=== PATIENT | female | born 1960 | race African-American/Black ===

== ENCOUNTER 2018-08-21 00:06 | Inpatient (IN) | payer BC ==
[~2018-08-21] VITALS: Ht 149.9 cm; Wt 72.0 kg
[~2018-08-21 00:06] MED LIST: ALBUTEROL; AMLO5TAB4; BENA20TA65; DEMEROL; PANCREAS MED; PEPCID; SOMA
[2018-08-21 02:37] VITALS: BP 133/76; PULSE 73; RESP 18
[2018-08-21 02:49] VITALS: Ht 149.9 cm; Wt 72.0 kg
--- NOTE | 2018-08-21 02:50 | HP ---
Date/Time of Note Date/Time of Note DATE: 08/21/18 TIME: 02:50 Assessment/Plan VTE Prophylaxis SCD applied (from Nsg): Yes Pharmacological prophylaxis: NA/contraindicated Pharm contraindication: low risk/ambulating Assessment/Plan Hospital Course This is a 58-year-old [facility] for: #1 recurrent pancreatitis: Patient has a history of chronic pink otitis. She was noted to have a lipase of 2100. We will keep patient n.p.o., IV fluid hydration with normal saline at 200 cc an hour. If patient's symptoms do not improve in the next 24 hours we will need to consider repeat CT scan with contrast of the abdomen pelvis. Patient was initially given morphine 2 mg upon arrival however patient states that this does not help her pain. At the current time we will adjust her morphine dose and put her on 4 mg every 3 hours. Zofran for nausea. Will check CBC CMP and lipase levels. #2 asthma: Stable at the current time, PRN albuterol as indicated #3 hypertension: Resume amlodipine and lisinopril #4 DVT GI prophylaxis: SCDs, no GI prophylaxis indicated Further treatment strategy will be implemented as per the clinical course. HPI/ROS Admit Date/Time Admit Date/Time Aug 21, 2018 at 02:10 Hx of Present Illness Chief complaint: Worsening abdominal This is a 58-year-old female who presented originally to [facility] complaining of abdominal pain. Patient has a history of asthma, chronic pink otitis and history of prior bowel obstruction. Patient was ultimately transferred to [facility] secondary insurance purposes. Patient originally presented to [facility] on [id number] where she was complaining of generalized sharp cramping severe intermittent abdominal pain. At that time she had a CT of the abdomen pelvis without contrast performed that did not show any acute on normalities. Patient symptoms had improved and she went home. She returned to [facility] on 08/20/2018 with symptoms of persistent nausea vomiting and abdominal pain. She had repeat studies performed there that showed a lipase of 2100. Upon arrival to [facility] patient did report abdominal pain as well as nausea. Pertinent laboratory findings when trended facility please see chart for full details: CT scan of the abdomen pelvis on 1226/as 19 showed: Fatty liver, small peripelvic cyst right kidney. Pelvic postoperative changes are present of the small bowel loops within the right pelvis. There are fecalized, minimally distended small bowel loops at the level of the previous surgery. More proximal and distal small bowel loops are normal in caliber. Atherosclerotic vascular disease CBC White blood cells 4.72 hemoglobin 10.7 hematocrit 32.6 platelets 190 Sodium 143 potassium 3.5 chloride 112 CO2 26 BUN 12 creatinine 0.60 lipase 2102 Alk phos 143 total bili 0.02 Allergies: Multiple please see EMR Medications: See MAR ROS Const: As per HPI Eyes : No pain discharge or redness or change in visual acuity ENT: No pain, sore throat, congestion, congestion, dysphagia or discharge Respiratory: No shortness of breath, cough, sputum, wheezing, or pleuritic pain Cardiovascular: No chest pain, palpitation, PND, or edema GI : As per HPI Genitourinary: No dysuria, hematuria, flank pain , discharge or CVA tenderness Musculoskeletal: No joint pain, back pain, neck pain, restricted range of motion in neck or joints Skin: No rash, bruising or hives Neuro: No headache, dizziness, syncope, seizure, focal weakness Endocrine: No polyuria, polydipsia, temperature intolerance Psych: No hallucination, depression, anxiety or suicidal ideation PMH/Family/Social Past Medical History Asthma, chronic pancreatitis, history of bowel obstruction, hypertension Coded Allergies: Codeine (Verified Allergy, Severe, RASH, 11/16/13) Hydrocodone (Verified Allergy, Severe, RASH, 11/16/13) Hydromorphone (Verified Allergy, Severe, RASH, 11/16/13) Oxycodone (Verified Allergy, Severe, RASH,BREATHING, 11/16/13) acetaminophen (Verified Allergy, Severe, RASH, 11/16/13) butorphanol (Verified Allergy, Severe, RASH, 11/16/13) ketorolac (Verified Allergy, Severe, RASH,BREATHINGPROBL, 11/16/13) nalbuphine (Verified Allergy, Severe, RASH, 11/16/13) pentazocine (Verified Allergy, Severe, CHRISTOPHER, 11/16/13) Past Surgical History Port-A-Cath placement secondary to poor venous access, questionable previous bowel surgery Family History Significant Family History: no pertinent family hx Social History Alcohol Use: none Smoking Status: Never smoker Drug Use: none Exam/Review of Systems Vital Signs Vitals Vital Signs Date Temp Pulse Resp B/P (MAP) Pulse Ox O2 O2 Flow FiO2 Time Delivery Rate 08/21/18 98.9 73 18 133/76 99 02:37 (95) Exam Exam General: Patient is currently lying in bed she appears to be in moderate distress from abdominal pain HEENT: Atraumatic, normocephalic. The pupils are equal, round and reactive. Extraocular motor are intact Neck: Supple with full range of motion. No rigidity or meningismus Chest: Port-A-Cath Lungs: Clear to auscultation bilaterally no crackles rales or wheezing Heart: Normal S1-S2, Regular rhythm and rate. Abdomen: Soft , tender to palpation over the epigastrium, nondistended, normal bowel sounds Extremities: Normal to inspection, no edema no cyanosis Neurologic: Normal mental status, speech normal, cranial nerves II through XII are intact, motor and sensory are intact, no focal weakness MONICA DARNELL Aug 21, 2018 02:50
[2018-08-21] MEDS ORDERED: METOCLOPRAMIDE 10 MG INJ IV PRN (03:00)
[2018-08-21] MEDS ORDERED: ONDANSETRON 4 MG INJ IV PRN (03:00)
[2018-08-21] MEDS ORDERED: NACL 0.9% 3 ML SYG IV SCH (03:00)
[2018-08-21] MEDS ORDERED: morphine 4 MG/ML VIAL IV PRN (03:00)
[2018-08-21] MEDS ORDERED: ACETAMINOPHEN 325 MG TAB PO PRN (03:00)
[2018-08-21] MEDS ORDERED: DOCUSATE SODIUM 100 MG CAP PO PRN (03:00)
[2018-08-21] MEDS ORDERED: BISACODYL (EC) 5 MG TAB PO PRN (03:00)
[2018-08-21] MEDS: SOD CHLORIDE 0.9% 1,000 ML IV SCH ×5 (03:28→23:03)
[2018-08-21] MEDS ORDERED: morphine 4 MG/ML VIAL IV ONE (05:03)
[2018-08-21] MEDS ORDERED: ALBUTEROL 0.083% (NEB) 2.5 MG/3 ML AMP HHN PRN (05:30)
--- NOTE | 2018-08-21 06:30 | NUR ---
Received from [facility] at 0220 hrs. Dx- Acute pancreatitis. A & O x 4. Skin is intact.on IVF NS at 200 cc/hr. Morphine 2 mg x2 given for pain.NPO except meds. Will continue to monitor.
[2018-08-21 07:36] VITALS: BP 123/68; PULSE 77; RESP 18
[2018-08-21] MEDS: BENAZEPRIL 20 MG TAB PO SCH (08:54)
[2018-08-21] MEDS: AMLODIPINE 5 MG TAB PO SCH (08:54)
[2018-08-21] MEDS: morphine 4 MG/ML VIAL IV PRN ×4 (08:59→20:40)
[2018-08-21] MEDS ORDERED: MAGNESIUM SULFATE 2 GM/50 ML 50 ML IVPB ONE (11:00)
[2018-08-21] MEDS ORDERED: DIATR MEGLU/DIATRIZOATE SODIUM 120 ML BTL ONE (11:11)
--- NOTE | 2018-08-21 11:12 | PN ---
Date/Time of Note Date/Time of Note DATE: 08/21/18 TIME: 11:06 Assessment/Plan VTE Prophylaxis Risk score (from Ns)>0 risk: 4 SCD applied (from Ns): Yes Pharmacological prophylaxis: NA/contraindicated Pharm contraindication: other Lines/Catheters IV Catheter Type (from [facility]): PORTACATH Assessment/Plan Hospital Course SUBJECTIVE: Continues to complain of abdominal pain specifically in the left upper quadrant and left lower quadrant with radiation to the back. OBJECTIVE: Physical Exam General: 58 year-old female lying in bed in no apparent distress. HEENT: Normocephalic, atraumatic. Eyes: Anicteric sclerae, conjunctivae clear. ENT: Nasal septum midline, oral mucosa moist. Neck obese. Respiratory: Bilaterally diminished breath sounds. No use of accessory muscles of respiration. No adventitious breath sounds. Cardiovascular: S1, S2 heard. regular rate and rhythm, Right chest wall Port-A-Cath. Abdomen: Soft and nondistended. diffuse tenderness. Midline surgical scar. Genitourinary: Deferred. Extremities: No cyanosis, no clubbing, no edema. Peripheral pulses palpable. Neurologic: Cranial nerves II through XII grossly intact. The patient is awake, alert, and oriented. Skin: Normal skin turgor. No skin rashes. Labs & Vitals per chart ASSESSMENT & PLAN 58-year-old male with comorbidities including asthma, hypertension, recurrent pancreatitis, chronic back pain, and bowel surgery in 2011 who went to the local emergency room complaining of abdominal pain with associated nausea, vomiting, and diarrhea. CT scan at the transferring ER was showing pelvic postoperative changes with small bowel loops within the right pelvis along with fecalized, minimally distended small bowel loops at the level of the previous surgery. The patient also had elevated lipase levels. The patient was transferred to [facility] for further evaluation because of insurance reasons. 1. Acute abdominal pain. -Etiology unclear. -Has minimally elevated pancreatic enzyme levels. -CT scan from the transferring facility suggesting pelvic postoperative changes with small bowel loops within the right pelvis along with fecalized, minimally distended small bowel loops at the level of the previous surgery. -Keep the patient NPO. -Small bowel follow through. -Stool studies to rule out any infectious etiology. 2. Pancreatitis. -Etiology unclear. -Continue NPO. -Trand pancreatic enzyme levels. -Gastroenterology consult. 3. Essential hypertension. -Continue antihypertensives 4. Asthma. -Continue inhaled bronchodilators as needed. -No evidence of any active bronchospasms. 5. Prediabetes -Hemoglobin A1c 5.9. -Monitor glycemic trends. 6. Fluids, electrolytes, and nutrition. -n.p.o. except for medications. -IV fluids. 7. DVT prophylaxis. -Bilateral SCDs. 8. Plan. -Continue n.p.o. -Continue pain control. -Obtain small bowel follow-through. -Obtain gastroenterology consult. The patient was seen in collaboration with Dr. Bone. Result Diagram: 08/21/18 0434 08/21/184 Results 24hrs Laboratory Tests Test 08/21/18 04:33 08/21/18 04:34 Lipase 917 H White Blood Count 4.5 L Red Blood Count 3.48 L Hemoglobin 10.4 L Hematocrit 32.2 L Mean Corpuscular Volume 92.5 Mean Corpuscular Hemoglobin 29.9 Mean Corpuscular Hemoglobin Concent 32.3 Red Cell Distribution Width 13.6 Platelet Count 205 Mean Platelet Volume 9.9 Immature Granulocytes % 0.400 Neutrophils % 51.8 Lymphocytes % 36.7 Monocytes % 8.2 Eosinophils % 2.7 Basophils % 0.2 Nucleated Red Blood Cells % 0.0 Immature Granulocytes # 0.020 Neutrophils # 2.3 Lymphocytes # 1.7 Monocytes # 0.4 Eosinophils # 0.1 Basophils # 0.0 Nucleated Red Blood Cells # 0.0 Prothrombin Time 13.2 Prothrombin Time Ratio 1.0 INR International Normalized Ratio 0.99 Activated Partial Thromboplast Time 28.3 Sodium Level 144 Potassium Level 3.5 Chloride Level 108 Carbon Dioxide Level 27 Anion Gap 9 Blood Urea Nitrogen 10 Creatinine 0.57 Est Glomerular Filtrat Rate mL/min > 60 Glucose Level 109 Hemoglobin A1c 5.9 Calcium Level 8.4 Magnesium Level 1.6 L Total Bilirubin 0.1 L Direct Bilirubin 0.00 Indirect Bilirubin 0.1 Aspartate Amino Transf (AST/SGOT) 21 Alanine Aminotransferase (ALT/SGPT) 23 Alkaline Phosphatase 110 Total Protein 6.0 L Albumin 3.3 Globulin 2.70 Albumin/Globulin Ratio 1.22 Triglycerides Level 118 Cholesterol Level 170 LDL Cholesterol, Calculated 118 HDL Cholesterol 28 L Cholesterol/HDL Ratio 6.0 Amylase Level 166 H Thyroid Stimulating Hormone (TSH) 4.400 Exam/Review of Systems Vital Signs Vitals Vital Signs Date Temp Pulse Resp B/P (MAP) Pulse Ox O2 O2 Flow FiO2 Time Delivery Rate 08/21/18 97.9 77 18 123/68 95 Room Air 07:36 (86) Intake and Output 08/20/18 08/20/18 08/21/18 1414:59 22:59 06:59 IntakeIntake Total 600 ml BalanceBalance 600 ml Medications Medications Current Medications Sodium Chloride 1,000 ml @ 200 mls/hr Q5H IV Last administered on 08/21/18at 08:54; Admin Dose 200 MLS/HR; Start 08/21/18 at 02:46 IV Flush (NS 3 ml) 3 ml PER PROTOCOL IV ; Start 08/21/18 at 03:00 Ondansetron HCl (Zofran Inj) 4 mg Q6H PRN IV NAUSEA AND/OR VOMITING; Start 08/21/18 at 03:00 Metoclopramide HCl (Reglan) 10 mg Q6H PRN IV NAUSEA AND/OR VOMITING; Start 08/21/18 at 03:00 Acetaminophen (Tylenol Tab) 650 mg Q6H PRN PO PAIN LEVEL 1-3 OR FEVER; Start 08/21/18 at 03:00 Docusate Sodium (Colace) 100 mg Q12H PRN PO CONSTIPATION; Start 08/21/18 at 03:00 Bisacodyl (Dulcolax) 5 mg DAILY PRN PO CONSTIPATION; Start 08/21/18 at 03:00 Morphine Sulfate (morphine) 4 mg Q3H PRN IV SEVERE PAIN LEVEL 7-10 Last administered on 08/21/18at 08:59; Admin Dose 4 MG; Start 08/21/18 at 07:00 Influenza Virus Vaccine Quadrival (Fluzone) 0.5 ml ONCE ONCE IM* ; Start 08/22/18 at 10:00; Stop 08/22/18 at 10:01 Amlodipine Besylate (Norvasc) 5 mg DAILY PO Last administered on 08/21/18at 08:54; Admin Dose 5 MG; Start 08/21/18 at 09:00 Albuterol (Proventil 0.083% (Neb)) 2.5 mg Q4H RESP THERAPY PRN HHN SHORTNESS OF BREATH; Start 08/21/18 at 05:30 Benazepril HCl (Lotensin) 20 mg DAILY PO Last administered on 08/21/18at 08:54; Admin Dose 20 MG; Start 08/21/18 at 09:00 Magnesium Sulfate 50 ml @ 25 mls/hr ONCE ONCE IVPB ; Start 08/21/18 at 11:00; Stop 08/21/18 at 12:59 NAYANA JANE NP Aug 21, 2018 11:12
--- NOTE | 2018-08-21 13:44 | QN ---
Documentation Comment Pt is off the floor, will consult in BRITTANY Adhikari Aug 21, 2018 13:44
[2018-08-21 14:09] VITALS: BP 134/76; PULSE 79; RESP 18
--- NOTE | 2018-08-21 18:43 | NUR ---
EOSS: PT STABLE THROUGHOUT SHIFT. SM BOWEL XRAY DONE WITH NEGATIVE RESULTS. STOOL AND URINE SENT PER ORDERS. PT IVF ONGOING, REPLACED MG PER ORDER. PT KEPT CLEAN AND DRY. NPO STATUS MAINTAINED. ALL DUE MEDS GIVEN, HOURLY ROUNDING COMPLETED. WILL ENDORSE CARE OF PT TO ONCOMING BLOG WRITER RN.
[2018-08-21 20:00] VITALS: BP 140/79; PULSE 72; RESP 18
[2018-08-21] MEDS: CARISOPRODOL 350 MG TAB PO PRN (21:53)
[2018-08-21] MEDS ORDERED: CARI350T29 PO (22:13)
[2018-08-22] MEDS: morphine 4 MG/ML VIAL IV PRN ×6 (00:01→21:00)
[2018-08-22 02:00] VITALS: BP 140/63; PULSE 74; RESP 18
[2018-08-22] MEDS: CARISOPRODOL 350 MG TAB PO PRN (04:18)
[2018-08-22] MEDS: SOD CHLORIDE 0.9% 1,000 ML IV SCH ×5 (04:19→23:46)
--- NOTE | 2018-08-22 06:06 | NUR ---
END OF SHIFT SUMMARY Received patient from AM shift on 08/21 at 1905. Patient is alert and oriented x4. Complains of abdominal pain. Pain is managed with Morphine IV PRN. Vital signs WNL. Obtained order for Soma [address] Wright per pt's request. Home meds reconciliation done. Patient is kept NPO except for meds. Stool and urine sample collected and sent by AM shift. Fall precautions initiated. Bed alarm is on, bed in lowest position, call light within reach. All needs attended. Will endorse to oncoming shift.
[2018-08-22 07:24] VITALS: BP 121/68; PULSE 69; RESP 18
[2018-08-22] MEDS: BENAZEPRIL 20 MG TAB PO SCH (08:57)
[2018-08-22] MEDS: AMLODIPINE 5 MG TAB PO SCH (08:57)
--- NOTE | 2018-08-22 10:17 | CONS ---
Date/Time of Note Date/Time of Note DATE: 08/22/18 TIME: 10:06 Assessment/Plan Assessment/Plan Hospital Course Assessment: Severe generalized abdominal pain Nausea/Vomiting Diarrhea- stool studies pending- no fevers Pancreatitis -elevated lipase- trending down Hx of prior bowel obstruction- with surgical intervention- 2010 Asthma HTN Hx of Diverticulitis Pt has port- due to poor venous access- and pt is frequently hospitalized Hx of hysterectomy Right breast pain -Recent right breast infection- about x1 month ago pt took Keflex and Bactrim Plan: Repeat CT with Iv/Po contrast Keep NPO Push IVF Monitor labs change Reglan to OTC Await stool studies Further rec based on clinical course Patient seen in collaboration with Dr. Rubalcava Result Diagram: 08/22/1828 08/22/18 0528 Results 24hrs Laboratory Tests Test 08/21/18 16:00 08/22/18 05:28 Urine Color YELLOW Urine Clarity CLEAR Urine pH 5.0 Urine Specific [place] 1.016 Urine Ketones NEGATIVE Urine Nitrite NEGATIVE Urine Bilirubin NEGATIVE Urine Urobilinogen NEGATIVE Urine Leukocyte Esterase NEGATIVE Urine Hemoglobin NEGATIVE Urine Glucose NEGATIVE Urine Total Protein NEGATIVE Urine Opiates Screen Positive Urine Barbiturates Negative Urine Amphetamines Screen Negative Urine Benzodiazepines Screen Negative Urine Cocaine Screen Negative Urine Cannabinoids Negative White Blood Count 6.4 # Red Blood Count 3.51 L Hemoglobin 10.5 L Hematocrit 31.7 L Mean Corpuscular Volume 90.3 Mean Corpuscular Hemoglobin 29.9 Mean Corpuscular Hemoglobin Concent 33.1 Red Cell Distribution Width 13.4 Platelet Count 252 # Mean Platelet Volume 9.5 Immature Granulocytes % 0.300 Neutrophils % 65.8 Lymphocytes % 26.1 Monocytes % 5.5 Eosinophils % 2.0 Basophils % 0.3 Nucleated Red Blood Cells % 0.0 Immature Granulocytes # 0.020 Neutrophils # 4.2 Lymphocytes # 1.7 Monocytes # 0.4 Eosinophils # 0.1 Basophils # 0.0 Nucleated Red Blood Cells # 0.0 Sodium Level 143 Potassium Level 3.4 L Chloride Level 106 Carbon Dioxide Level 26 Anion Gap 11 Blood Urea Nitrogen 4 L Creatinine 0.50 Est Glomerular Filtrat Rate mL/min > 60 Glucose Level 172 Calcium Level 8.0 L Phosphorus Level 2.5 Magnesium Level 1.9 Total Bilirubin 0.1 L Direct Bilirubin 0.00 Indirect Bilirubin 0.1 Aspartate Amino Transf (AST/SGOT) 21 Alanine Aminotransferase (ALT/SGPT) 26 Alkaline Phosphatase 125 H Total Protein 6.3 Albumin 3.5 Globulin 2.80 Albumin/Globulin Ratio 1.25 Amylase Level 107 Lipase 432 H CC: LISANDRA RUBALCAVA ; Consultation Date/Type/Reason Admit Date/Time Aug 21, 2018 at 02:10 Date of Consultation: Aug 22, 2018 Type of Consult GI Reason for Consultation Severe generalized abdominal pain Pancreatitis Hx of Present Illness Is a 58-year-old female with past medical history of asthma, hypertension, diverticulitis, pancreatitis, previous bowel obstruction with surgical intervention who initially presented to an outside hospital with complaints of profuse diarrhea, nausea/vomiting, and abdominal pain she had a CT abdomen/pelvis without contrast which showed fatty liver, small peripelvic cyst right kidney, postoperative changes of the small bowel loops within the right pelvis. There are of equal size, minimally distended small bowel loops at the level of the previous surgery. The more proximal and distal small bowel loops are normal in caliber. She was afebrile with a normal white count she was transferred to [facility] for insurance reasons. Here she underwent a small bowel follow-through which was negative stool studies have been ordered and currently pending was noted to be elevated 900s today is decreased to 400 at time evaluation patient continues to generalized abdominal pain notably worse to lower quadrants she continues to complain of diarrhea states vomiting has resolved but continues to have nausea. She denies recent tr volodymyr, exposure to illness with similar symptoms. She states she did use antibiotics about 1 month ago (Keflex, Bactrim) for right breast infection. She has denied melena, hematochezia, or hematemesis. Her last colonoscopy was 2016 she believes colonoscopy was negative but she is unsure of complete findings, last EGD was at the same time also negative per patient. Recommend repeating CAT scan with p.o. IV contrast for further evaluation await stool studies keep n.p.o. otherwise push IV fluid maintain close observation. Review of Systems: A 12 system, review was conducted and is negative except as noted in the HPI or here. Past Medical History Medications Current Medications Sodium Chloride 1,000 ml @ 200 mls/hr Q5H IV Last administered on 08/22/18at 09:24; Admin Dose 200 MLS/HR; Start 08/21/18 at 02:46 IV Flush (NS 3 ml) 3 ml PER PROTOCOL IV ; Start 08/21/18 at 03:00 Ondansetron HCl (Zofran Inj) 4 mg Q6H PRN IV NAUSEA AND/OR VOMITING; Start 08/21/18 at 03:00 Metoclopramide HCl (Reglan) 10 mg Q6H PRN IV NAUSEA AND/OR VOMITING; Start 08/21/18 at 03:00 Acetaminophen (Tylenol Tab) 650 mg Q6H PRN PO PAIN LEVEL 1-3 OR FEVER; Start 08/21/18 at 03:00 Docusate Sodium (Colace) 100 mg Q12H PRN PO CONSTIPATION; Start 08/21/18 at 03:00 Bisacodyl (Dulcolax) 5 mg DAILY PRN PO CONSTIPATION; Start 08/21/18 at 03:00 Morphine Sulfate (morphine) 4 mg Q3H PRN IV SEVERE PAIN LEVEL 7-10 Last administered on 08/22/18at 09:01; Admin Dose 4 MG; Start 08/21/18 at 07:00 Amlodipine Besylate (Norvasc) 5 mg DAILY PO Last administered on 08/22/18at 08:57; Admin Dose 5 MG; Start 08/21/18 at 09:00 Albuterol (Proventil 0.083% (Neb)) 2.5 mg Q4H RESP THERAPY PRN HHN SHORTNESS OF BREATH; Start 08/21/18 at 05:30 Benazepril HCl (Lotensin) 20 mg DAILY PO Last administered on 08/22/18at 08:57; Admin Dose 20 MG; Start 08/21/18 at 09:00 Carisoprodol (Soma) 350 mg DAILY PRN PO PAIN LEVEL 1-5 Last administered on 08/22/18at 04:18; Admin Dose 350 MG; Start 08/21/18 at 21:30 Allergies: Coded Allergies: Codeine (Verified Allergy, Severe, RASH, 11/16/13) Hydrocodone (Verified Allergy, Severe, RASH, 11/16/13) Hydromorphone (Verified Allergy, Severe, RASH, 11/16/13) Oxycodone (Verified Allergy, Severe, RASH,BREATHING, 11/16/13) acetaminophen (Verified Allergy, Severe, RASH, 11/16/13) butorphanol (Verified Allergy, Severe, RASH, 11/16/13) ketorolac (Verified Allergy, Severe, RASH,BREATHINGPROBL, 11/16/13) nalbuphine (Verified Allergy, Severe, RASH, 11/16/13) pentazocine (Verified Allergy, Severe, CHRISTOPHER, 11/16/13) Social History Alcohol Use: none Smoking Status: Never smoker Drug Use: none Exam/Review of Systems Vital Signs Vitals Vital Signs Date Temp Pulse Resp B/P (MAP) Pulse Ox O2 O2 Flow FiO2 Time Delivery Rate 08/22/18 98.6 69 18 121/68 93 Room Air 07:24 (85) Intake and Output 08/21/18 08/21/18 08/22/18 1515:00 23:00 07:00 IntakeIntake Total 400 ml 2000 ml 1200 ml BalanceBalance 400 ml 2000 ml 1200 ml Exam PHYSICAL EXAMINATION: GENERAL: Alert & oriented x 3, with abdominal pain SKIN: Port to right upper chest EYES: Pupils equal reactive to light, no discharge. EARS/NOSE AND THROAT: Ears normal, nose normal. NECK: Supple, no masses CHEST: Inspection within normal limits. CARDIOVASCULAR: Heart: Regular rate and rhythm RESPIRATORY: Lungs clear to auscultation GASTROINTESTINAL AND LIVER: Abdomen: Soft, generalized abdominal pain, non- distended, no hernias, no rebound tenderness, normoactive bowel sounds. Rectal: Deferred. GENITOURINARY: Female genitalia within normal limits. EXTREMITIES: No cyanosis, clubbing or edema. Medications Medications Current Medications Sodium Chloride 1,000 ml @ 200 mls/hr Q5H IV Last administered on 08/22/18at 09:24; Admin Dose 200 MLS/HR; Start 08/21/18 at 02:46 IV Flush (NS 3 ml) 3 ml PER PROTOCOL IV ; Start 08/21/18 at 03:00 Ondansetron HCl (Zofran Inj) 4 mg Q6H PRN IV NAUSEA AND/OR VOMITING; Start 08/21/18 at 03:00 Metoclopramide HCl (Reglan) 10 mg Q6H PRN IV NAUSEA AND/OR VOMITING; Start 08/21/18 at 03:00 Acetaminophen (Tylenol Tab) 650 mg Q6H PRN PO PAIN LEVEL 1-3 OR FEVER; Start 08/21/18 at 03:00 Docusate Sodium (Colace) 100 mg Q12H PRN PO CONSTIPATION; Start 08/21/18 at 03:00 Bisacodyl (Dulcolax) 5 mg DAILY PRN PO CONSTIPATION; Start 08/21/18 at 03:00 Morphine Sulfate (morphine) 4 mg Q3H PRN IV SEVERE PAIN LEVEL 7-10 Last administered on 08/22/18 09:01; Admin Dose 4 MG; Start 08/21/18 at 07:00 Amlodipine Besylate (Norvasc) 5 mg DAILY PO Last administered on 08/22/18at 08:57; Admin Dose 5 MG; Start 08/21/18 at 09:00 Albuterol (Proventil 0.083% (Neb)) 2.5 mg Q4H RESP THERAPY PRN HHN SHORTNESS OF BREATH; Start 08/21/18 at 05:30 Benazepril HCl (Lotensin) 20 mg DAILY PO Last administered on 08/22/18at 08:57; Admin Dose 20 MG; Start 08/21/18 at 09:00 Carisoprodol (Soma) 350 mg DAILY PRN PO PAIN LEVEL 1-5 Last administered on 08/22/18at 04:18; Admin Dose 350 MG; Start 08/21/18 at 21:30 BRITTANY MADRIGAL Aug 22, 2018 10:17
[2018-08-22] MEDS ORDERED: BARIUM SULF 2% 450 ML BTL (BERRY SMOOTHIE) PO ONE (12:00)
[2018-08-22] MEDS: VANCOMYCIN HCL 250 MG/5ML POSYG PO SCH ×2 (13:42→17:40)
[2018-08-22 14:06] VITALS: BP 138/73; PULSE 67; RESP 18
[2018-08-22] MEDS: METOCLOPRAMIDE 10 MG INJ IV SCH ×2 (14:45→21:00)
[2018-08-22] MEDS ORDERED: SOD CHLORIDE 0.9% 100 ML ONE (15:13)
[2018-08-22] MEDS ORDERED: IOHEXOL 300MG/ML 150 ML BTL ONE (15:13)
--- NOTE | 2018-08-22 15:14 | PN ---
Date/Time of Note Date/Time of Note DATE: 08/22/18 TIME: 15:11 Assessment/Plan VTE Prophylaxis Risk score (from Ns)>0 risk: 5 SCD applied (from Ns): Yes Pharmacological prophylaxis: NA/contraindicated Pharm contraindication: anticoag not tolerated Lines/Catheters IV [facility] Port A cath Assessment/Plan Hospital Course SUBJECTIVE: Continues to complain of abdominal pain. Complains of left breast soreness. She reported that she had a right breast infection recently. OBJECTIVE: Physical Exam General: 58 year-old female lying in bed in no apparent distress. HEENT: Normocephalic, atraumatic. Eyes: Anicteric sclerae, conjunctivae clear. ENT: Nasal septum midline, oral mucosa moist. Neck obese. Respiratory: Bilaterally diminished breath sounds. No use of accessory muscles of respiration. No adventitious breath sounds. Cardiovascular: S1, S2 heard. regular rate and rhythm, Right chest wall Port-A-Cath. Abdomen: Soft and nondistended. diffuse tenderness. Midline surgical scar. Genitourinary: Deferred. Extremities: No cyanosis, no clubbing, no edema. Peripheral pulses palpable. Neurologic: Cranial nerves II through XII grossly intact. The patient is awake, alert, and oriented. Skin: Normal skin turgor. No skin rashes. Breast exam (with a female learning disabilities teacher): Right breast has no erythema. Tenderness in the areola. Labs & Vitals per chart ASSESSMENT & PLAN 58-year-old male with comorbidities including asthma, hypertension, recurrent pancreatitis, chronic back pain, and bowel surgery in 2011 who went to the local emergency room complaining of abdominal pain with associated nausea, vomiting, and diarrhea. CT scan at the transferring ER was showing pelvic postoperative changes with small bowel loops within the right pelvis along with fecalized, minimally distended small bowel loops at the level of the previous surgery. The patient also had elevated lipase levels. The patient was transferred to [facility] for further evaluation because of insurance reasons. 1. Acute abdominal pain. -Etiology unclear. -Stool for C. difficile positive, the most likely reason for her underlying a bdominal pain. -Started on oral vancomycin. -Spore precautions. -Being followed by gastroenterology. 2. Pancreatitis. -Etiology unclear. -Trand pancreatic enzyme levels. -Gastroenterology consult. -Start the patient on a clear liquid diet. 3. Essential hypertension. -Continue antihypertensives 4. Asthma. -Continue inhaled bronchodilators as needed. -No evidence of any active bronchospasms. 5. Prediabetes -Hemoglobin A1c 5.9. -Monitor glycemic trends. 6. Fluids, electrolytes, and nutrition. -Clear liquid diet. -IV fluids. 7. DVT prophylaxis. -Bilateral SCDs. 8. Plan. -Clear liquid diet. -Continue pain control. -Bilateral breast ultrasound since the patient was complaining of sore in the breast. The patient was seen in collaboration with Dr. Bone. Result Diagram: [id number]/22/[id number]/18527 Results 24hrs Laboratory Tests Test 08/21/18 16:00 08/22/18 05:28 Urine Color YELLOW Urine Clarity CLEAR Urine pH 5.0 Urine Specific Novelty 1.016 Urine Ketones NEGATIVE Urine Nitrite NEGATIVE Urine Bilirubin NEGATIVE Urine Urobilinogen NEGATIVE Urine Leukocyte Esterase NEGATIVE Urine Hemoglobin NEGATIVE Urine Glucose NEGATIVE Urine Total Protein NEGATIVE Urine Opiates Screen Positive Urine Barbiturates Negative Urine Amphetamines Screen Negative Urine Benzodiazepines Screen Negative Urine Cocaine Screen Negative Urine Cannabinoids Negative White Blood Count 6.4 # Red Blood Count 3.51 L Hemoglobin 10.5 L Hematocrit 31.7 L Mean Corpuscular Volume 90.3 Mean Corpuscular Hemoglobin 29.9 Mean Corpuscular Hemoglobin Concent 33.1 Red Cell Distribution Width 13.4 Platelet Count 252 # Mean Platelet Volume 9.5 Immature Granulocytes % 0.300 Neutrophils % 65.8 Lymphocytes % 26.1 Monocytes % 5.5 Eosinophils % 2.0 Basophils % 0.3 Nucleated Red Blood Cells % 0.0 Immature Granulocytes # 0.020 Neutrophils # 4.2 Lymphocytes # 1.7 Monocytes # 0.4 Eosinophils # 0.1 Basophils # 0.0 Nucleated Red Blood Cells # 0.0 Sodium Level 143 Potassium Level 3.4 L Chloride Level 106 Carbon Dioxide Level 26 Anion Gap 11 Blood Urea Nitrogen 4 L Creatinine 0.50 Est Glomerular Filtrat Rate mL/min > 60 Glucose Level 172 Calcium Level 8.0 L Phosphorus Level 2.5 Magnesium Level 1.9 Total Bilirubin 0.1 L Direct Bilirubin 0.00 Indirect Bilirubin 0.1 Aspartate Amino Transf (AST/SGOT) 21 Alanine Aminotransferase (ALT/SGPT) 26 Alkaline Phosphatase 125 H Total Protein 6.3 Albumin 3.5 Globulin 2.80 Albumin/Globulin Ratio 1.25 Amylase Level 107 Lipase 432 H Exam/Review of Systems Vital Signs Vitals Vital Signs Date Temp Pulse Resp B/P (MAP) Pulse Ox O2 O2 Flow FiO2 Time Delivery Rate 08/22/18 98.3 67 18 138/73 93 Room Air 14:06 (94) Intake and Output 08/21/18 08/21/18 08/22/18 1414:59 22:59 06:59 IntakeIntake Total 400 ml 2000 ml 1200 ml BalanceBalance 400 ml 2000 ml 1200 ml Medications Medications Current Medications Sodium Chloride 1,000 ml @ 200 mls/hr Q5H IV Last administered on 08/22/18at 14:42; Admin Dose 200 MLS/HR; Start 08/21/18 at 02:46 IV Flush (NS 3 ml) 3 ml PER PROTOCOL IV ; Start 08/21/18 at 03:00 Ondansetron HCl (Zofran Inj) 4 mg Q6H PRN IV NAUSEA AND/OR VOMITING; Start 08/21/18 at 03:00 Acetaminophen (Tylenol Tab) 650 mg Q6H PRN PO PAIN LEVEL 1-3 OR FEVER; Start 08/21/18 at 03:00 Docusate Sodium (Colace) 100 mg Q12H PRN PO CONSTIPATION; Start 08/21/18 at 03:00 Bisacodyl (Dulcolax) 5 mg DAILY PRN PO CONSTIPATION; Start 08/21/18 at 03:00 Morphine Sulfate (morphine) 4 mg Q3H PRN IV SEVERE PAIN LEVEL 7-10 Last administered on 08/22/18at 12:00; Admin Dose 4 MG; Start 08/21/18 at 07:00 Amlodipine Besylate (Norvasc) 5 mg DAILY PO Last administered on 08/22/18at 08:57; Admin Dose 5 MG; Start 08/21/18 at 09:00 Albuterol (Proventil 0.083% (Neb)) 2.5 mg Q4H RESP THERAPY PRN HHN SHORTNESS OF BREATH; Start 08/21/18 at 05:30 Benazepril HCl (Lotensin) 20 mg DAILY PO Last administered on 08/22/18at 08:57; Admin Dose 20 MG; Start 08/21/18 at 09:00 Carisoprodol (Soma) 350 mg DAILY PRN PO PAIN LEVEL 1-5 Last administered on 08/22/18at 04:18; Admin Dose 350 MG; Start 08/21/18 at 21:30 Metoclopramide HCl (Reglan) 10 mg Q6H IV Last administered on 08/22/18at 14:45; Admin Dose 10 MG; Start 08/22/18 at 15:00 Vancomycin HCl (Vancomycin Oral Syringe) 250 mg Q6 PO Last administered on 08/22/18at 13:42; Admin Dose 250 MG; Start 08/22/18 at 13:30 Potassium Chloride (Klor-Con 10) 30 meq ONCE ONCE PO ; Start 08/22/18 at 15:30; Stop 08/22/18 at 15:31; Status UNV NAYANA JANE NP Aug 22, 2018 15:14
[2018-08-22] MEDS ORDERED: POTASSIUM CHLORIDE (SR) 10 MEQ TAB PO ONE (16:30)
--- NOTE | 2018-08-22 18:33 | NUR ---
No acute distress during the day. Patient been c/o back and abdominal pain. , medicated as ordered with relieve of pain to level of tolerance. Patient is still running diarrhea , stool positive for C Diff.MD aware.Breasts US done, CT scan of Abdomen done, results pending.VS within acceptable range.Patient remained safe , call light within reach, bed alarm is on at all times.Will continue to monitor.
[2018-08-22 20:00] VITALS: BP 120/67; PULSE 64; RESP 18
[2018-08-23] MEDS: VANCOMYCIN HCL 250 MG/5ML POSYG PO SCH ×5 (00:30→23:57)
[2018-08-23] MEDS: morphine 4 MG/ML VIAL IV PRN ×7 (00:31→23:05)
[2018-08-23 02:00] VITALS: BP 136/83; PULSE 60; RESP 18
[2018-08-23] MEDS: SOD CHLORIDE 0.9% 1,000 ML IV SCH ×4 (02:32→09:46)
[2018-08-23] MEDS: METOCLOPRAMIDE 10 MG INJ IV SCH ×2 (03:00→08:33)
--- NOTE | 2018-08-23 06:57 | NUR ---
EOSS Pt has diarrhea, uses bedside commode. Due meds given, pt medicated for pain x 3. VSS. Pt refuses bed alarm. Call light within reach and instructed to use call light.
[2018-08-23] MEDS: AMLODIPINE 5 MG TAB PO SCH (08:32)
[2018-08-23] MEDS: BENAZEPRIL 20 MG TAB PO SCH (08:32)
--- NOTE | 2018-08-23 08:57 | PN ---
Date/Time of Note Date/Time of Note DATE: 08/23/18 TIME: 08:52 Assessment/Plan VTE Prophylaxis Risk score (from Nsg)>0 risk: 5 SCD applied (from Nsg): No SCD contraindicated: low risk/ambulating, other Pharmacological prophylaxis: NA/contraindicated Pharm contraindication: low risk/ambulating Lines/Catheters IV Catheter Type (from Nrs): port a cath Assessment/Plan Hospital Course Assessment: CDIFF colitis Severe generalized abdominal pain- improved Nausea/Vomiting- resolved Diarrhea- improved Pancreatitis -elevated lipase- trending down -ct no evidence of pancreatitis Hx of prior bowel obstruction- with surgical intervention- 2010 Asthma HTN Hx of Diverticulitis Pt has port- due to poor venous access- and pt is frequently hospitalized Hx of hysterectomy Right breast pain -Recent right breast infection- about x1 month ago pt took Keflex and Bactrim Plan: Low residue diet Continue ABX- until total course is finished Will change Reglan to PRN Patient seen in collaboration with Dr. Baig Subjective: Course reviewed with nursing staff Patient interviewed and examined All labs, imaging and other results reviewed The patient feels much better today. Discussed results of Ct abd/pelvis pt c/o feeling of stricture near anal canal, she states a previous hx of hemorrhoidectomy Last colonoscopy 5 years ago, unsure of results. Discussed plan to f/u as an out patient for further evaluation, currently we need to treat cdiff infection. Pt verbalized understanding and is agreeable. She is tolerating cl liq diet well asking to advance diet. No c/o n/v, much less abd pain, diarrhea has already improved. PHYSICAL EXAMINATION: GENERAL: Alert & oriented x 3, with abdominal pain SKIN: Port to right upper chest EYES: Pupils equal reactive to light, no discharge. EARS/NOSE AND THROAT: Ears normal, nose normal. NECK: Supple, no masses CHEST: Inspection within normal limits. CARDIOVASCULAR: Heart: Regular rate and rhythm RESPIRATORY: Lungs clear to auscultation GASTROINTESTINAL AND LIVER: Abdomen: Soft, generalized abdominal pain, non-distended, no hernias, no rebound tenderness, normoactive bowel sounds. Rectal: Deferred. GENITOURINARY: Female genitalia within normal limits. EXTREMITIES: No cyanosis, clubbing or edema Result Diagram: 08/23/18 0552 08/23/18 0552 Results 24hrs Laboratory Tests Test 08/23/18 05:52 White Blood Count 6.4 Red Blood Count 3.63 L Hemoglobin 10.8 L Hematocrit 32.1 L Mean Corpuscular Volume 88.4 Mean Corpuscular Hemoglobin 29.8 Mean Corpuscular Hemoglobin Concent 33.6 Red Cell Distribution Width 13.0 Platelet Count 266 Mean Platelet Volume 9.8 Immature Granulocytes % 0.300 Neutrophils % 52.9 Lymphocytes % 35.7 Monocytes % 7.8 Eosinophils % 2.8 Basophils % 0.5 Nucleated Red Blood Cells % 0.0 Immature Granulocytes # 0.020 Neutrophils # 3.4 Lymphocytes # 2.3 Monocytes # 0.5 Eosinophils # 0.2 Basophils # 0.0 Nucleated Red Blood Cells # 0.0 Sodium Level 145 H Potassium Level 3.5 Chloride Level 106 Carbon Dioxide Level 29 Anion Gap 10 Blood Urea Nitrogen 3 L Creatinine 0.53 Est Glomerular Filtrat Rate mL/min > 60 Glucose Level 115 # Calcium Level 8.7 Phosphorus Level 2.9 Magnesium Level 1.7 Total Bilirubin 0.3 Direct Bilirubin 0.00 Indirect Bilirubin 0.3 Aspartate Amino Transf (AST/SGOT) 27 Alanine Aminotransferase (ALT/SGPT) 24 Alkaline Phosphatase 132 H Total Protein 6.5 Albumin 3.7 Globulin 2.80 Albumin/Globulin Ratio 1.32 Amylase Level 60 Lipase 221 Exam/Review of Systems Vital Signs Vitals Vital Signs Date Temp Pulse Resp B/P (MAP) Pulse Ox O2 O2 Flow FiO2 Time Delivery Rate 08/23/18 98.1 60 18 136/83 94 Room Air 02:00 (100) Intake and Output 08/22/18 08/22/18 08/23/18 1515:00 23:00 07:00 IntakeIntake Total 1800 ml 1340 ml 1840 ml BalanceBalance 1800 ml 1340 ml 1840 ml Medications Medications Current Medications Sodium Chloride 1,000 ml @ 200 mls/hr Q5H IV Last administered on 08/23/18at 07:57; Admin Dose 200 MLS/HR; Start 08/21/18 at 02:46 IV Flush (NS 3 ml) 3 ml PER PROTOCOL IV ; Start 08/21/18 at 03:00 Ondansetron HCl (Zofran Inj) 4 mg Q6H PRN IV NAUSEA AND/OR VOMITING; Start 08/21/18 at 03:00 Acetaminophen (Tylenol Tab) 650 mg Q6H PRN PO PAIN LEVEL 1-3 OR FEVER; Start 08/21/18 at 03:00 Docusate Sodium (Colace) 100 mg Q12H PRN PO CONSTIPATION; Start 08/21/18 at 03:00 Bisacodyl (Dulcolax) 5 mg DAILY PRN PO CONSTIPATION; Start 08/21/18 at 03:00 Morphine Sulfate (morphine) 4 mg Q3H PRN IV SEVERE PAIN LEVEL 7-10 Last administered on 08/23/18 08:38; Admin Dose 4 MG; Start 08/21/18 at 07:00 Amlodipine Besylate (Norvasc) 5 mg DAILY PO Last administered on 08/23/18 08:32; Admin Dose 5 MG; Start 08/21/18 at 09:00 Albuterol (Proventil 0.083% (Neb)) 2.5 mg Q4H RESP THERAPY PRN HHN SHORTNESS OF BREATH; Start 08/21/18 at 05:30 Benazepril HCl (Lotensin) 20 mg DAILY PO Last administered on 08/23/18 08:32; Admin Dose 20 MG; Start 08/21/18 at 09:00 Carisoprodol (Soma) 350 mg DAILY PRN PO PAIN LEVEL 1-5 Last administered on 08/22/18 04:18; Admin Dose 350 MG; Start 08/21/18 at 21:30 Metoclopramide HCl (Reglan) 10 mg Q6H IV Last administered on 08/22/18 14:45; Admin Dose 10 MG; Start 08/22/18 at 15:00 Vancomycin HCl (Vancomycin Oral Syringe) 250 mg Q6 PO Last administered on 08/23/18 06:38; Admin Dose 250 MG; Start 08/22/18 at 13:30 BRITTANY MADRIGAL Aug 23, 2018 08:57
[2018-08-23] MEDS ORDERED: METOCLOPRAMIDE 10 MG INJ IV PRN (09:00)
--- NOTE | 2018-08-23 11:38 | DS ---
Date/Time of Note Date/Time of Note DATE: 08/23/18 TIME: 11:34 Discharge Summary Admission/Discharge Info Admit Date/Time Aug 21, 2018 at 02:10 Discharge Date/Time Patient Condition: Good Consults Dr Siddiqui Procedures SBS IMPRESSION: 1. Negative small-bowel follow-through. 2. Contrast identified within the colon by 120 minutes. .Nika Anthony MD, MD Date Time CT A/P IMPRESSION: No evidence of urolithiasis, obstructive uropathy or diverticulitis. Nonvisualization appendix. No evidence of acute or chronic pancreatitis. Minimal bibasilar atelectasis with tiny effusions. Fatty liver. Hysterectomy.. .Ramses Rosales MD, MD Date Time BREAST ULTRASOUND PROCEDURE: Right breast ultrasound. CLINICAL INDICATION: Right breast pain TECHNIQUE: Right whole breast, 4 quadrant and retroareolar, and axillary sonography was performed. COMPARISON: Mammogram dated 01/18/2014 FINDINGS: No solid or suspicious masses. No areas of architectural distortion. No malignant adenopathy. No dominant cysts are present. IMPRESSION: No sonographic findings of malignancy. No sonographic correlate for the right breast pain. For complete evaluation, recommend correlation with mammogram as the most recent available mammogram is dated 2013. BI-RADS 0: INCOMPLETE, NEED ADDITIONAL IMAGING EVALUATION Physician Abdi Hx of Present Illness 58-year-old female admitted with recurrent abdominal pain. Hospital Course 58-year-old female admitted with recurrent abdominal pain. Seen by GI. Small bowel series, CAT scan not concerning for any acute process. Examination of stool returned positive for C. difficile. Patient's symptoms have improved. Her bowel movements have diminished. Patient is tolerating diet, stable and fit for discharge on Flagyl. We will asked that she follow-up with GI. C. difficile colitis, stable finish antibiotics Chronic asthma stable follow-up with pulmonary as indicated. Keep port in place Chronic hypertension Hysterectomy status Diverticulosis History of small bowel resection Metabolic syndromemurmur Recent breast cellulitis/antibiotics Home Meds Reported Medications Carisoprodol* (Carisoprodol*) 350 Mg Tablet, 350 MG PO DAILY PRN for MUSCLE SP ASMS, TAB 08/21/18 Benazepril Hcl* (Lotensin*) 20 Mg Tablet 08/12/09 Amlodipine Besylate* (Norvasc*) 5 Mg Tablet 08/12/09 [Pancreas Med] No Conflict Check 08/09/09 [Demerol] No Conflict Check 08/09/09 [Soma] No Conflict Check 08/09/09 [Pepcid] No Conflict Check 08/09/09 [Albuterol] No Conflict Check 08/09/09 Primary Care Provider Not On Staff Doctor Time spent on discharge: > 30 minutes Pending Labs Laboratory Tests Test 08/23/18 05:52 White Blood Count 6.4 10^3/ul (4.8-10.8) Red Blood Count 3.63 10^6/ul (4.20-5.40) Hemoglobin 10.8 g/dl (12.0-16.0) Hematocrit 32.1 % (37.0-47.0) Mean Corpuscular Volume 88.4 fl (82.0-101.0) Mean Corpuscular Hemoglobin 29.8 pg (29.0-33.0) Mean Corpuscular Hemoglobin Concent 33.6 g/dl (32.0-37.0) Red Cell Distribution Width 13.0 % (11.5-14.5) Platelet Count 266 10^3/UL (140-415) Mean Platelet Volume 9.8 fl (7.4-10.4) Immature Granulocytes % 0.300 % (0.001-0.429) Neutrophils % 52.9 % (39.0-77.0) Lymphocytes % 35.7 % (15.0-51.0) Monocytes % 7.8 % (0.0-11.0) Eosinophils % 2.8 % (0.0-7.0) Basophils % 0.5 % (0.0-2.0) Nucleated Red Blood Cells % 0.0 /100WBC (0.0-0.0) Immature Granulocytes # 0.020 10^3/ul (0.0-0.031) Neutrophils # 3.4 10^3/ul (1.6-7.5) Lymphocytes # 2.3 10^3/ul (0.8-2.9) Monocytes # 0.5 10^3/ul (0.3-0.9) Eosinophils # 0.2 10^3/ul (0.0-0.5) Basophils # 0.0 10^3/ul (0.0-0.1) Nucleated Red Blood Cells # 0.0 10^3/ul (0.0-0.0) Sodium Level 145 mmol/L (135-144) Potassium Level 3.5 mmol/L (3.5-5.1) Chloride Level 106 mmol/L (97-110) Carbon Dioxide Level 29 mmol/L (21-31) Anion Gap 10 (5-13) Blood Urea Nitrogen 3 mg/dl (7-20) Creatinine 0.53 mg/dl (0.44-1.00) Est Glomerular Filtrat Rate mL/min > 60 mL/min (>60) Glucose Level 115 mg/dl (70-220) Calcium Level 8.7 mg/dl (8.4-10.2) Phosphorus Level 2.9 mg/dl (2.5-4.9) Magnesium Level 1.7 mg/dl (1.7-2.5) Total Bilirubin 0.3 mg/dl (0.2-1.3) Direct Bilirubin 0.00 mg/dl (0.00-0.20) Indirect Bilirubin 0.3 mg/dl (0-1.1) Aspartate Amino Transf (AST/SGOT) 27 IU/L (15-46) Alanine Aminotransferase (ALT/SGPT) 24 IU/L (13-69) Alkaline Phosphatase 132 IU/L (42-121) Total Protein 6.5 g/dl (6.1-8.1) Albumin 3.7 g/dl (3.3-4.9) Globulin 2.80 g/dl (1.3-3.2) Albumin/Globulin Ratio 1.32 Amylase Level 60 U/L (11-123) Lipase 221 U/L (23-300) BANDAR AGRAWAL MD 31, 2018 11:38
--- NOTE | 2018-08-23 11:41 | PDOCDIS ---
Discharge Instructions CONDITION [id number] Patient Condition: [id number] Stable HOME CARE INSTRUCTIONS: [id number] Diet Instructions: [id number] Regular [id number] Special Diet: [id number] low salt ACTIVITY: [id number] Activity Restrictions: [id number] Slowly Increase Activity Do not Drive FOLLOW UP/APPOINTMENTS Follow-up Plan Appt PCP 2wks Dr Siddiqui 1wk Regular shank stapler 2-3wks BANDAR AGRAWAL MD Aug 23, 2018 11:41
[2018-08-23] MEDS ORDERED: Vancomycin Oral Syringe PO (11:43)
[2018-08-23] MEDS ORDERED: LACT1CAP28 PO (11:43)
[2018-08-23] MEDS ORDERED: ACET325T33 PO (11:43)
--- NOTE | 2018-08-23 11:58 | NUR ---
ORDERS PLACED FOR DISCHARGE, HOWEVER PT HAS NO FAMILY/CAREGIVER AT HOME TO ACCEPT HER TODAY AND WISHES TO GO HOME TOMORROW. INFORMED MD WHO AGREED TO DISCHARGE TOMORROW. DISCHARGE ORDER CANCELLED.
[2018-08-23] MEDS: ENOXAPARIN 40 MG/0.4 ML SYG SC SCH (13:13)
[2018-08-23 14:33] VITALS: BP 103/72; RESP 18
--- NOTE | 2018-08-23 14:58 | NUR ---
LACHO NOTE: HH Order for HH Port care faxed to REYNALDO Gould at [facility] (P:[phone], F:[phone]). Confirmation received. Dimas De La Cruz RN CM [id number] Addendum: 08/25/18 at 1106 by DELTA DE LA CRUZ CM Called Ray at [facility] to f/u regarding HH. Ray not available. Left vm asking for call back. Addendum: 08/26/18 at 0748 by DELTA DE LA CRUZ CM Clarified order for HH faxed to REYNALDO at [facility]. Confirmation received.
--- NOTE | 2018-08-23 17:00 | NUR ---
ENDORSED CARE TO FELIPE ORELLANA. PT IN STABLE CONDITION.
--- NOTE | 2018-08-23 18:23 | NUR ---
END OF SHIFT Patient alert, no acute distress. Administered Vanco PO as ordered. Denies pain at this time. Needs attended,. Call light within reach. Will continue to monitor.
[2018-08-23 19:40] VITALS: BP 135/73; PULSE 62; RESP 18
[2018-08-23 20:00] VITALS: BP 148/77; PULSE 74; RESP 18
[2018-08-23] MEDS: LACTOBACILLUS RHAMNOSUS CAP PO SCH (20:51)
[2018-08-24 02:00] VITALS: BP 164/73; PULSE 64; RESP 18
[2018-08-24] MEDS: morphine 4 MG/ML VIAL IV PRN ×5 (03:19→21:57)
[2018-08-24] MEDS: CARISOPRODOL 350 MG TAB PO PRN ×2 (04:16→22:03)
[2018-08-24 04:19] VITALS: BP 149/65; PULSE 60
--- NOTE | 2018-08-24 04:21 | NUR ---
BP was 164/73 for 0200 VS check. Assessed for underlying causes. Pt stating 7/10 pain. Administered morphine pain med and reassessed. Pain level decreased to 3/10 and BP went down 149/65. Will continue to monitor.
[2018-08-24] MEDS: VANCOMYCIN HCL 250 MG/5ML POSYG PO SCH ×3 (05:10→17:51)
--- NOTE | 2018-08-24 06:07 | NUR ---
EOSS No acute changes in patient's condition. VS WNL. A&Ox4. All due meds given. Pt c/o 03/02 pain. Pain meds given. Pain meds effective. Hourly rounding done. Bed left in lowest position with bed alarm on. Pt refusing to use call light before getting out of bed. Call light left within reach.
[2018-08-24 07:37] VITALS: BP 119/58; PULSE 62; RESP 17
[2018-08-24] MEDS: LACTOBACILLUS RHAMNOSUS CAP PO SCH ×2 (08:44→21:55)
[2018-08-24] MEDS: AMLODIPINE 5 MG TAB PO SCH (08:44)
[2018-08-24] MEDS: BENAZEPRIL 20 MG TAB PO SCH (08:44)
[2018-08-24] MEDS: ENOXAPARIN 40 MG/0.4 ML SYG SC SCH (08:47)
--- NOTE | 2018-08-24 12:15 | PN ---
Date/Time of Note Date/Time of Note DATE: 08/24/18 TIME: 12:10 Assessment/Plan VTE Prophylaxis Risk score (from Ns)>0 risk: 3 [place] [facility] [place] contraindicated: low risk/ambulating, other Pharmacological prophylaxis: NA/contraindicated Pharm contraindication: low risk/ambulating Lines/Catheters [facility] ILNK CATH Assessment/Plan Hospital Course Assessment: CDIFF colitis Severe generalized abdominal pain- improved Nausea/Vomiting- resolved Diarrhea- improved Pancreatitis? -elevated lipase- Normalized -ct no evidence of pancreatitis Hx of prior bowel obstruction- with surgical intervention- 2010 Asthma HTN Hx of Diverticulitis Pt has port- due to poor venous access- and pt is frequently hospitalized Hx of hysterectomy Right breast pain -Recent right breast infection- about x1 month ago pt took Keflex and Bactrim Plan: Low residue diet Continue ABX- until total course is finished Home health pending- plan for d/c tomorrow No further GI recs- we will sign off but will be available upon reconsult as needed Patient seen in collaboration with Dr. Baig Subjective: Course reviewed with nursing staff Patient interviewed and examined All labs, imaging and other results reviewed No over night events, pt continues to improve Discussed recs to f/u with GI after d/c pt verbalized understanding PHYSICAL EXAMINATION: GENERAL: Alert & oriented x 3, with abdominal pain SKIN: Port to right upper chest EYES: Pupils equal reactive to light, no discharge. EARS/NOSE AND THROAT: Ears normal, nose normal. NECK: Supple, no masses CHEST: Inspection within normal limits. CARDIOVASCULAR: Heart: Regular rate and rhythm RESPIRATORY: Lungs clear to auscultation GASTROINTESTINAL AND LIVER: Abdomen: Soft, generalized abdominal pain- greatly improved, non-distended, no hernias, no rebound tenderness, normoactive bowel sounds. Rectal: Deferred. GENITOURINARY: Female genitalia within normal limits. EXTREMITIES: No cyanosis, clubbing or edema Result Diagram: 08/24/18 0456 08/24/18 0456 Results 24hrs Laboratory Tests Test 08/24/18 04:56 08/24/18 06:07 White Blood Count 6.5 Red Blood Count 3.77 L Hemoglobin 11.0 L Hematocrit 33.3 L Mean Corpuscular Volume 88.3 Mean Corpuscular Hemoglobin 29.2 Mean Corpuscular Hemoglobin Concent 33.0 Red Cell Distribution Width 13.1 Platelet Count 277 Mean Platelet Volume 9.9 Immature Granulocytes % 0.300 Neutrophils % 48.6 Lymphocytes % 40.7 Monocytes % 7.2 Eosinophils % 2.9 Basophils % 0.3 Nucleated Red Blood Cells % 0.0 Immature Granulocytes # 0.020 Neutrophils # 3.2 Lymphocytes # 2.7 Monocytes # 0.5 Eosinophils # 0.2 Basophils # 0.0 Nucleated Red Blood Cells # 0.0 Sodium Level 144 Potassium Level 3.3 L Chloride Level 104 Carbon Dioxide Level 30 Anion Gap 10 Blood Urea Nitrogen 5 L Creatinine 0.57 Est Glomerular Filtrat Rate mL/min > 60 Glucose Level 154 Calcium Level 9.2 Magnesium Level 1.8 Total Bilirubin 0.1 L Direct Bilirubin 0.00 Indirect Bilirubin 0.1 Aspartate Amino Transf (AST/SGOT) 57 H Alanine Aminotransferase (ALT/SGPT) 35 Alkaline Phosphatase 140 H Total Protein 6.9 Albumin 3.8 Globulin 3.10 Albumin/Globulin Ratio 1.22 Lab Scanned Report REFERENCE LAB Exam/Review of Systems Vital Signs Vitals Vital Signs Date Temp Pulse Resp B/P (MAP) Pulse Ox O2 O2 Flow FiO2 Time Delivery Rate 08/24/18 98.9 62 17 119/58 94 07:37 (78) 08/23/18 Room Air 14:33 Intake and Output 08/23/18 08/23/18 08/24/18 1515:00 23:00 07:00 IntakeIntake Total 1200 ml 400 ml BalanceBalance 1200 ml 400 ml Medications Medications Current Medications IV Flush (NS 3 ml) 3 ml PER PROTOCOL IV ; Start 08/21/18 at 03:00 Ondansetron HCl (Zofran Inj) 4 mg Q6H PRN IV NAUSEA AND/OR VOMITING; Start 08/21/18 at 03:00 Acetaminophen (Tylenol Tab) 650 mg Q6H PRN PO PAIN LEVEL 1-3 OR FEVER; Start 08/21/18 at 03:00 Docusate Sodium (Colace) 100 mg Q12H PRN PO CONSTIPATION; Start 08/21/18 at 03:00 Bisacodyl (Dulcolax) 5 mg DAILY PRN PO CONSTIPATION; Start 08/21/18 at 03:00 Morphine Sulfate (morphine) 4 mg Q3H PRN IV SEVERE PAIN LEVEL 7-10 Last administered on 08/24/18at 08:45; Admin Dose 4 MG; Start 08/21/18 at 07:00 Amlodipine Besylate (Norvasc) 5 mg DAILY PO Last administered on 08/24/18 08:44; Admin Dose 5 MG; Start 08/21/18 at 09:00 Albuterol (Proventil 0.083% (Neb)) 2.5 mg Q4H RESP THERAPY PRN HHN SHORTNESS OF BREATH; Start 08/21/18 at 05:30 Benazepril HCl (Lotensin) 20 mg DAILY PO Last administered on 08/24/18 08:44; Admin Dose 20 MG; Start 08/21/18 at 09:00 Carisoprodol (Soma) 350 mg DAILY PRN PO PAIN LEVEL 1-5 Last administered on 08/24/18 04:16; Admin Dose 350 MG; Start 08/21/18 at 21:30 Vancomycin HCl (Vancomycin Oral Syringe) 250 mg Q6 PO Last administered on 08/24/18 12:05; Admin Dose 250 MG; Start 08/22/18 at 13:30 Metoclopramide HCl (Reglan) 10 mg Q6H PRN IV n/v; Start 08/23/18 at 09:00 Lactobacillus Acidophilus/ Rhamnosus (Culturelle) 1 cap BID PO Last administered on 08/24/18 08:44; Admin Dose 1 CAP; Start 08/23/18 at 21:00 Enoxaparin Sodium (Lovenox) 40 mg DAILY SC Last administered on 08/24/18 08:47; Admin Dose 40 MG; Start 08/23/18 at 12:30 BRITTANY MADRIGAL Aug 24, 2018 12:15
[2018-08-24 14:35] VITALS: BP 131/68; PULSE 74; RESP 18
--- NOTE | 2018-08-24 17:36 | PN ---
Date/Time of Note Date/Time of Note DATE: 08/24/18 TIME: 17:34 Assessment/Plan VTE Prophylaxis Risk score (from Nsg)>0 risk: 3 SCD applied (from Nsg): No SCD contraindicated: low risk/ambulating Pharmacological prophylaxis: LMWH Lines/Catheters IV Catheter Type (from Nrs): LINK CATH Assessment/Plan Hospital Course 58-year-old female admitted with recurrent abdominal pain. Seen by GI. Small bowel series, CAT scan not concerning for any acute process. Examination of [facility] returned positive for C. difficile. Patient's symptoms have improved. Her bowel movements have diminished. Patient is tolerating diet, stable and fit for discharge on Flagyl. We will asked that she follow-up with GI. Assessment and plan C. difficile colitis, stable finish antibiotics Chronic asthma stable follow-up with pulmonary as indicated. Keep port in place Chronic hypertension Hysterectomy status Diverticulosis History of small bowel resection Metabolic syndromemurmur Recent breast cellulitis/antibiotics Failure to thrive, home safety eval/home health being arranged. Subjective: Stable. Less diarrhea. No fever tolerating diet. Objective: Vital signs stable Physical exam No pallor icterus reg s1s2 no m/r/g Clear bs+ nt nd; no r/r/g no edema Result Diagram: 08/24/18 0456 08/24/18 0456 Results 24hrs Laboratory Tests Test 08/24/18 04:56 08/24/18 06:07 White Blood Count 6.5 Red Blood Count 3.77 L Hemoglobin 11.0 L Hematocrit 33.3 L Mean Corpuscular Volume 88.3 Mean Corpuscular Hemoglobin 29.2 Mean Corpuscular Hemoglobin Concent 33.0 Red Cell Distribution Width 13.1 Platelet Count 277 Mean Platelet Volume 9.9 Immature Granulocytes % 0.300 Neutrophils % 48.6 Lymphocytes % 40.7 Monocytes % 7.2 Eosinophils % 2.9 Basophils % 0.3 Nucleated Red Blood Cells % 0.0 Immature Granulocytes # 0.020 Neutrophils # 3.2 Lymphocytes # 2.7 Monocytes # 0.5 Eosinophils # 0.2 Basophils # 0.0 Nucleated Red Blood Cells # 0.0 Sodium Level 144 Potassium Level 3.3 L Chloride Level 104 Carbon Dioxide Level 30 Anion Gap 10 Blood Urea Nitrogen 5 L Creatinine 0.57 Est Glomerular Filtrat Rate mL/min > 60 Glucose Level 154 Calcium Level 9.2 Magnesium Level 1.8 Total Bilirubin 0.1 L Direct Bilirubin 0.00 Indirect Bilirubin 0.1 Aspartate Amino Transf (AST/SGOT) 57 H Alanine Aminotransferase (ALT/SGPT) 35 Alkaline Phosphatase 140 H Total Protein 6.9 Albumin 3.8 Globulin 3.10 Albumin/Globulin Ratio 1.22 Lab Scanned Report REFERENCE LAB Exam/Review of Systems Vital Signs Vitals Vital Signs Date Temp Pulse Resp B/P (MAP) Pulse Ox O2 O2 Flow FiO2 Time Delivery Rate 08/24/18 97.5 74 18 131/68 96 14:35 (89) 08/23/18 Room Air 14:33 Intake and Output 08/23/18 08/23/18 08/24/18 1515:00 23:00 07:00 IntakeIntake Total 1200 ml 400 ml BalanceBalance 1200 ml 400 ml Medications Medications Current Medications IV Flush (NS 3 ml) 3 ml PER PROTOCOL IV ; Start 08/21/18 at 03:00 Ondansetron HCl (Zofran Inj) 4 mg Q6H PRN IV NAUSEA AND/OR VOMITING; Start 08/21/18 at 03:00 Acetaminophen (Tylenol Tab) 650 mg Q6H PRN PO PAIN LEVEL 1-3 OR FEVER; Start 08/21/18 at 03:00 Docusate Sodium (Colace) 100 mg Q12H PRN PO CONSTIPATION; Start 08/21/18 at 03:00 Bisacodyl (Dulcolax) 5 mg DAILY PRN PO CONSTIPATION; Start 08/21/18 at 03:00 Morphine Sulfate (morphine) 4 mg Q3H PRN IV SEVERE PAIN LEVEL 7-10 Last administered on 08/24/18 13:08; Admin Dose 4 MG; Start 08/21/18 at 07:00 Amlodipine Besylate (Norvasc) 5 mg DAILY PO Last administered on 08/24/18 08:44; Admin Dose 5 MG; Start 08/21/18 at 09:00 Albuterol (Proventil 0.083% (Neb)) 2.5 mg Q4H RESP THERAPY PRN HHN SHORTNESS OF BREATH; Start 08/21/18 at 05:30 Benazepril HCl (Lotensin) 20 mg DAILY PO Last administered on 08/24/18 08:44; Admin Dose 20 MG; Start 08/21/18 at 09:00 Carisoprodol (Soma) 350 mg DAILY PRN PO PAIN LEVEL 1-5 Last administered on 08/24/18 04:16; Admin Dose 350 MG; Start 08/21/18 at 21:30 Vancomycin HCl (Vancomycin Oral Syringe) 250 mg Q6 PO Last administered on 08/24/18 12:05; Admin Dose 250 MG; Start 08/22/18 at 13:30 Metoclopramide HCl (Reglan) 10 mg Q6H PRN IV n/v; Start 08/23/18 at 09:00 Lactobacillus Acidophilus/ Rhamnosus (Culturelle) 1 cap BID PO Last administered on 08/24/18 08:44; Admin Dose 1 CAP; Start 08/23/18 at 21:00 Enoxaparin Sodium (Lovenox) 40 mg DAILY SC Last administered on 08/24/18 08:47; Admin Dose 40 MG; Start 08/23/18 at 12:30 BANDAR AGRAWAL MD Aug 24, 2018 17:36
--- NOTE | 2018-08-24 18:00 | NUR ---
Spoke with Dr. Tierney (at the bedside) that this patient will be going home tomorrow after home health is finished being arranged. He said this is okay. However, new discharge order placed for today. Paged MD twice to discuss discharge order. Waiting for return call.
--- NOTE | 2018-08-24 18:24 | NUR ---
SHIFT SUMMARY: NO SIGNIFICANT CHANGE OF CONDITION. NO SOB NOTED. MEDICATED FOR PAIN PRN W/ EFFECTIVE RESULT. CONTAC SPORE ISOLATION MAINTAINED. NO DIARRHEA OBSERVED TODAY. HOURLY ROUNDING ESTABLISHED , SAFETY PRECAUTIONS MAINTAINED.ORDER RECEIVED BY DR. EPPERSON TO DC PT HOME.PT AWARE, PT STATED SHE IS NOT SUPPOSE TO BE DISCHARGE TILL HOME HEALTH IS ARRANGED. CHARGE NURSE LELAND MADE AWARE. ACCORDING TO LELAND Hernandez SHE SPOKE TO DR. AGRAWAL , HE IS AWARE THAT HOME HEALTH ARRANGEMENT IS PENDING AT THIS TIME. ALL NEEDS ATTENDED AND RENDERED. CALL LIGHT WITHIN REACH.
[2018-08-24 20:09] VITALS: BP 135/77; PULSE 74; RESP 18
[2018-08-25] MEDS: morphine 4 MG/ML VIAL IV PRN ×6 (01:09→21:34)
[2018-08-25] MEDS: VANCOMYCIN HCL 250 MG/5ML POSYG PO SCH ×4 (01:15→17:41)
[2018-08-25 01:39] VITALS: BP 144/80; PULSE 63; RESP 18
--- NOTE | 2018-08-25 04:35 | NUR ---
re: shift note patient is alert and oriented, vss, no signs of distress noted. prn pain meds administered, verbalized partial relief. po vanco for cdiff, no complaints of diarrhea. pending discharge home with home health once it is arranged. remains free from injury and falls. will continue to monitor.
--- NOTE | 2018-08-25 06:14 | NUR ---
re: portacath dressing change pt wants to have dressing change done later today, will endorse to oncoming shift RN.
[2018-08-25 07:50] VITALS: BP_SYST 127; PULSE 65; RESP 16
[2018-08-25] MEDS: AMLODIPINE 5 MG TAB PO SCH (09:02)
[2018-08-25] MEDS: BENAZEPRIL 20 MG TAB PO SCH (09:02)
[2018-08-25] MEDS: LACTOBACILLUS RHAMNOSUS CAP PO SCH ×2 (09:02→21:34)
[2018-08-25] MEDS: ENOXAPARIN 40 MG/0.4 ML SYG SC SCH (09:04)
[2018-08-25 14:33] VITALS: BP 135/75; PULSE 68; RESP 17
--- NOTE | 2018-08-25 15:56 | DS ---
Date/Time of Note Date/Time of Note DATE: 08/25/18 TIME: 15:52 Discharge Summary Admission/Discharge Info Admit Date/Time Aug 21, 2018 at 02:10 Discharge Date/Time Patient Condition: Stable Consults Dr Siddiqui Procedures CT A/P IMPRESSION: No evidence of urolithiasis, obstructive uropathy or diverticulitis. Nonvisualization appendix. No evidence of acute or chronic pancreatitis. Minimal bibasilar atelectasis with tiny effusions. Fatty liver. Hysterectomy.. .David Van Hx of Present Illness 58-year-old female admitted with recurrent abdominal pain. Hospital Course 58-year-old female admitted with recurrent abdominal pain. Seen by GI. Small bowel series, CT scan not concerning for any acute process. stool returned positive for C diff. symptoms have improved. bm's have dimin. Patient is tolerating diet, stable and fit for discharge on oral vancomycin. We will asked that she follow-up with GI. Case management will arrange for Port-A-Cath to be flushed once every 3 months. Assessment and plan C. difficile colitis, stable finish antibiotics Chronic asthma stable follow-up with pulmonary as indicated. Keep port in place Chronic hypertension Hysterectomy status Diverticulosis History of small bowel resection Metabolic syndromemurmur Recent breast cellulitis/antibiotics Failure to thrive, home safety eval/home health being arranged. Home Meds Active Scripts Lactobacillus Rhamnosus GG (Culturelle) 1 Each Capsule, 1 CAP PO BID for 30 Days, CAP otc Prov:BANDAR AGRAWAL MD 08/23/18 Acetaminophen* (Tylenol*) 325 Mg Tablet, 650 MG PO Q6H PRN for PAIN LEVEL 1-3 OR FEVER for 1 Day, TAB Prov:BANDAR AGRAWAL MD 08/23/18 [Vancomycin Oral Syringe] 50 MG/ML SOLN No Conflict Check, 250 MG PO Q6 for 10 Days, #40 Prov:BANDAR AGRAWAL MD 08/23/18 Reported Medications Benazepril Hcl* (Lotensin*) 20 Mg Tablet 08/12/09 Amlodipine Besylate* (Norvasc*) 5 Mg Tablet 08/12/09 [Pancreas Med] No Conflict Check 08/09/09 [Pepcid] No Conflict Check 08/09/09 [Albuterol] No Conflict Check 08/09/09 Discontinued Reported Medications Carisoprodol* (Carisoprodol*) 350 Mg Tablet, 350 MG PO DAILY PRN for MUSCLE SPASMS, TAB 08/21/18 [Demerol] No Conflict Check 08/09/09 [Soma] No Conflict Check 08/09/09 Follow-up Plan Appt PCP 2wks Dr Siddiqui 1wk Regular manager ed 2-3wks Primary Care Provider Not On Staff Doctor Time spent on discharge: > 30 minutes Pending Labs Laboratory Tests Test 08/25/18 13:13 White Blood Count 6.4 10^3/ul (4.8-10.8) Red Blood Count 3.81 10^6/ul (4.20-5.40) Hemoglobin 11.4 g/dl (12.0-16.0) Hematocrit 34.7 % (37.0-47.0) Mean Corpuscular Volume 91.1 fl (82.0-101.0) Mean Corpuscular Hemoglobin 29.9 pg (29.0-33.0) Mean Corpuscular Hemoglobin Concent 32.9 g/dl (32.0-37.0) Red Cell Distribution Width 13.3 % (11.5-14.5) Platelet Count 284 10^3/UL (140-415) Mean Platelet Volume 9.5 fl (7.4-10.4) Immature Granulocytes % 0.200 % (0.001-0.429) Neutrophils % 51.8 % (39.0-77.0) Lymphocytes % 40.0 % (15.0-51.0) Monocytes % 5.8 % (0.0-11.0) Eosinophils % 1.7 % (0.0-7.0) Basophils % 0.5 % (0.0-2.0) Nucleated Red Blood Cells % 0.0 /100WBC (0.0-0.0) Immature Granulocytes # 0.010 10^3/ul (0.0-0.031) Neutrophils # 3.3 10^3/ul (1.6-7.5) Lymphocytes # 2.6 10^3/ul (0.8-2.9) Monocytes # 0.4 10^3/ul (0.3-0.9) Eosinophils # 0.1 10^3/ul (0.0-0.5) Basophils # 0.0 10^3/ul (0.0-0.1) Nucleated Red Blood Cells # 0.0 10^3/ul (0.0-0.0) Sodium Level 144 mmol/L (135-144) Potassium Level 3.8 mmol/L (3.5-5.1) Chloride Level 104 mmol/L (97-110) Carbon Dioxide Level 33 mmol/L (21-31) Anion Gap 7 (5-13) Blood Urea Nitrogen 9 mg/dl (7-20) Creatinine 0.61 mg/dl (0.44-1.00) Est Glomerular Filtrat Rate mL/min > 60 mL/min (>60) Glucose Level 112 mg/dl (70-220) Hemoglobin A1c 5.8 % (0-5.9) Calcium Level 8.9 mg/dl (8.4-10.2) Magnesium Level 1.8 mg/dl (1.7-2.5) Total Bilirubin 0.0 mg/dl (0.2-1.3) Direct Bilirubin 0.00 mg/dl (0.00-0.20) Indirect Bilirubin 0.0 mg/dl (0-1.1) Aspartate Amino Transf (AST/SGOT) 62 IU/L (15-46) Alanine Aminotransferase (ALT/SGPT) 60 IU/L (13-69) Alkaline Phosphatase 158 IU/L (42-121) Total Protein 6.8 g/dl (6.1-8.1) Albumin 3.9 g/dl (3.3-4.9) Globulin 2.90 g/dl (1.3-3.2) Albumin/Globulin Ratio 1.34 Triglycerides Level 243 mg/dl (0-149) Cholesterol Level 181 mg/dl (100-200) LDL Cholesterol, Calculated 103 mg/dl HDL Cholesterol 29 mg/dl (37-92) Cholesterol/HDL Ratio 6.2 RATIO Thyroxine (T4) 8.4 ug/dl (5.5-11.0) Total Triiodothyronine 1.34 ng/ml (0.97-1.69) Rapid Plasma Reagin NONREACTIVE (NR) HIV (1&2) Antibody NEGATIVE (NEGATIVE) BANDAR AGRAWAL MD Aug 25, 2018 15:56
--- NOTE | 2018-08-25 15:57 | PN ---
Date/Time of Note Date/Time of Note DATE: 08/25/18 TIME: 15:56 Assessment/Plan VTE Prophylaxis Risk score (from Nsg)>0 risk: 4 SCD applied (from Nsg): No SCD contraindicated: low risk/ambulating Pharmacological prophylaxis: LMWH Lines/Catheters IV Catheter Type (from Nrsg): portacath Assessment/Plan Hospital Course Entry for 08/23 Assessment/plan C. difficile colitis, stable finish antibiotics Chronic asthma stable follow-up with pulmonary as indicated. Keep port in place Chronic hypertension Hysterectomy status Diverticulosis History of small bowel resection Metabolic syndrome Recent breast cellulitis/antibiotics Failure to thrive, home safety eval/home health being arranged. Subjective: Stable. Less diarrhea. No fever tolerating diet. Objective: Vital signs stable Physical exam No pallor icterus reg s1s2 no m/r/g Clear bs+ nt nd; no r/r/g no edema Result Diagram: 08/25/18 1313 08/25/18 1313 Results 24hrs Laboratory Tests Test 08/25/18 13:13 White Blood Count 6.4 Red Blood Count 3.81 L Hemoglobin 11.4 L Hematocrit 34.7 L Mean Corpuscular Volume 91.1 Mean Corpuscular Hemoglobin 29.9 Mean Corpuscular Hemoglobin Concent 32.9 Red Cell Distribution Width 13.3 Platelet Count 284 Mean Platelet Volume 9.5 Immature Granulocytes % 0.200 Neutrophils % 51.8 Lymphocytes % 40.0 Monocytes % 5.8 Eosinophils % 1.7 Basophils % 0.5 Nucleated Red Blood Cells % 0.0 Immature Granulocytes # 0.010 Neutrophils # 3.3 Lymphocytes # 2.6 Monocytes # 0.4 Eosinophils # 0.1 Basophils # 0.0 Nucleated Red Blood Cells # 0.0 Sodium Level 144 Potassium Level 3.8 Chloride Level 104 Carbon Dioxide Level 33 H Anion Gap 7 Blood Urea Nitrogen 9 Creatinine 0.61 Est Glomerular Filtrat Rate mL/min > 60 Glucose Level 112 # Hemoglobin A1c 5.8 Calcium Level 8.9 Magnesium Level 1.8 Total Bilirubin 0.0 L Direct Bilirubin 0.00 Indirect Bilirubin 0.0 Aspartate Amino Transf (AST/SGOT) 62 H Alanine Aminotransferase (ALT/SGPT) 60 Alkaline Phosphatase 158 H Total Protein 6.8 Albumin 3.9 Globulin 2.90 Albumin/Globulin Ratio 1.34 Triglycerides Level 243 H Cholesterol Level 181 LDL Cholesterol, Calculated 103 HDL Cholesterol 29 L Cholesterol/HDL Ratio 6.2 Thyroxine (T4) 8.4 Total Triiodothyronine 1.34 Rapid Plasma Reagin NONREACTIVE HIV (1&2) Antibody NEGATIVE Exam/Review of Systems Vital Signs Vitals Vital Signs Date Temp Pulse Resp B/P (MAP) Pulse Ox O2 O2 Flow FiO2 Time Delivery Rate 08/25/18 98.7 68 17 135/75 98 Room Air 14:33 (95) Intake and Output 08/24/18 08/24/18 08/25/18 1515:00 23:00 07:00 IntakeIntake Total 900 ml 1970 ml 240 ml BalanceBalance 900 ml 1970 ml 240 ml Medications Medications Current Medications IV Flush (NS 3 ml) 3 ml PER PROTOCOL IV ; Start 08/21/18 at 03:00 Ondansetron HCl (Zofran Inj) 4 mg Q6H PRN IV NAUSEA AND/OR VOMITING; Start 08/21/18 at 03:00 Acetaminophen (Tylenol Tab) 650 mg Q6H PRN PO PAIN LEVEL 1-3 OR FEVER; Start 08/21/18 at 03:00 Docusate Sodium (Colace) 100 mg Q12H PRN PO CONSTIPATION; Start 08/21/18 at 03:00 Bisacodyl (Dulcolax) 5 mg DAILY PRN PO CONSTIPATION; Start 08/21/18 at 03:00 Morphine Sulfate (morphine) 4 mg Q3H PRN IV SEVERE PAIN LEVEL 7-10 Last administered on 08/25/18 13:02; Admin Dose 4 MG; Start 08/21/18 at 07:00 Amlodipine Besylate (Norvasc) 5 mg DAILY PO Last administered on 08/25/18 09:02; Admin Dose 5 MG; Start 08/21/18 at 09:00 Albuterol (Proventil 0.083% (Neb)) 2.5 mg Q4H RESP THERAPY PRN HHN SHORTNESS OF BREATH; Start 08/21/18 at 05:30 Benazepril HCl (Lotensin) 20 mg DAILY PO Last administered on 08/25/18 09:02; Admin Dose 20 MG; Start 08/21/18 at 09:00 Carisoprodol (Soma) 350 mg DAILY PRN PO PAIN LEVEL 1-5 Last administered on 08/24/18 22:03; Admin Dose 350 MG; Start 08/21/18 at 21:30 Vancomycin HCl (Vancomycin Oral Syringe) 250 mg Q6 PO Last administered on 08/25/18at 12:36; Admin Dose 250 MG; Start 08/22/18 at 13:30 Metoclopramide HCl (Reglan) 10 mg Q6H PRN IV n/v; Start 08/23/18 at 09:00 Lactobacillus Acidophilus/ Rhamnosus (Culturelle) 1 cap BID PO Last administered on 08/25/18at 09:02; Admin Dose 1 CAP; Start 08/23/18 at 21:00 Enoxaparin Sodium (Lovenox) 40 mg DAILY SC Last administered on 08/25/18at 09:04; Admin Dose 40 MG; Start 08/23/18 at 12:30 Heparin Sodium (Porcine) (Heparin Flush (100 Units/ml)) 500 unit ONCE ONCE CATHETER ; Start 08/25/18 at 16:00; Stop 08/25/18 at 16:01 BANDAR AGRAWAL MD Aug 25, 2018 15:57
[2018-08-25] MEDS ORDERED: HEPARIN (100 UNITS/ML) 5 ML SYG CATHETER ONE (16:00)
--- NOTE | 2018-08-25 16:48 | NUR ---
End of shift report No acute change in condition noted throughout the shift. Various lab tests ordered by Dr. Roth prior to discharge to home with home health. Not all lab results are available at this time: spoke with pt about need for follow up with [facility] after discharge. Pt verbalized understanding. Heparin flush prior to portacath needle removal ordered, to be carried out before discharge. Dressing change offered but refused. Morphine given three times so far and effective. Will continue to monitor.
[2018-08-25 19:20] VITALS: BP 137/76; PULSE 73; RESP 18
[2018-08-25 21:27] VITALS: BP 126/66; PULSE 78; RESP 18
--- NOTE | 2018-08-26 00:19 | NUR ---
Aox4. VSS. C/o Abd pain. Tolerating Morphine IV q3. Right chest port, flushes well, good blood return, dressing changed. Voiding. BM 08/25/17. Tolerating diet. Transfers with waker and one assist.
[2018-08-26] MEDS: morphine 4 MG/ML VIAL IV PRN ×3 (00:51→11:24)
[2018-08-26] MEDS: VANCOMYCIN HCL 250 MG/5ML POSYG PO SCH ×2 (00:51→05:30)
[2018-08-26 01:55] VITALS: BP 126/64; PULSE 68; RESP 18
[2018-08-26] MEDS: CARISOPRODOL 350 MG TAB PO PRN (06:38)
[2018-08-26 07:34] VITALS: BP 108/60; PULSE 66; RESP 18
--- NOTE | 2018-08-26 07:50 | NUR ---
CM NOTE: DISCHARGE PT to be contacted by [facility] for HH. FELIPE Rosales informed of this on 08/25/2017, however pt still here this am. Informed ZAK Cyr pt clear for d/c. Dimas Tsai RN CM [id number]
[2018-08-26] MEDS: BENAZEPRIL 20 MG TAB PO SCH (09:20)
[2018-08-26] MEDS: LACTOBACILLUS RHAMNOSUS CAP PO SCH (09:20)
[2018-08-26] MEDS: AMLODIPINE 5 MG TAB PO SCH (09:21)
[2018-08-26] MEDS: ENOXAPARIN 40 MG/0.4 ML SYG SC SCH (09:32)
--- NOTE | 2018-08-26 12:24 | NUR ---
PT IS DISCHARGE HOME ORDERED. PORT A CATH REMOVED PER PROTOCOL. ALL DISCHARGE INSTRUCTION IS GIVEN PT UNDERSTOOD.
--- NOTE | 2018-08-26 13:41 | DS ---
Date/Time of Note Date/Time of Note DATE: 08/26/18 TIME: 13:39 Discharge Summary Admission/Discharge Info Admit Date/Time Aug 21, 2018 at 02:10 Discharge Date/Time Aug 26, 2018 at 12:20 Patient Condition: Good Consults Chen Procedures None none except radiograph he Hx of Present Illness 58-year-old female admitted with recurrent abdominal pain. Hospital Course Hospital course Admitted for abdominal pain. Stool test positive for C. difficile. Presently stable and fit for discharge on vancomycin. I believe patient received antibio tics for recent breast cellulitis. Her diarrhea has resolved. She was counseled regarding the risk of/challenges of recurrence of this disease. Assessment/plan C. difficile colitis, stable finish antibiotics Chronic asthma stable follow-up with pulmonary as indicated. Keep port in place Chronic hypertension Hysterectomy status Diverticulosis History of small bowel resection Metabolic syndrome Recent breast cellulitis/antibiotics Failure to thrive, home safety eval/home health being arranged. Home Meds Active Scripts Lactobacillus Rhamnosus GG (Culturelle) 1 Each Capsule, 1 CAP PO BID for 30 Days, CAP otc Prov:BANDAR AGRAWAL MD 08/23/18 Acetaminophen* (Tylenol*) 325 Mg Tablet, 650 MG PO Q6H PRN for PAIN LEVEL 1-3 OR FEVER for 1 Day, TAB Prov:BANDAR AGRAWAL MD 08/23/18 [Vancomycin Oral Syringe] 50 MG/ML SOLN No Conflict Check, 250 MG PO Q6 for 10 Days, #40 Prov:BANDAR AGRAWAL MD 08/23/18 Reported Medications Benazepril Hcl* (Lotensin*) 20 Mg Tablet 08/12/09 Amlodipine Besylate* (Norvasc*) 5 Mg Tablet 08/12/09 [Pancreas Med] No Conflict Check 08/09/09 [Pepcid] No Conflict Check 08/09/09 [Albuterol] No Conflict Check 08/09/09 Discontinued Reported Medications Carisoprodol* (Carisoprodol*) 350 Mg Tablet, 350 MG PO DAILY PRN for MUSCLE SPASMS, TAB 08/21/18 [Demerol] No Conflict Check 08/09/09 [Soma] No Conflict Check 08/09/09 Follow-up Plan Appt PCP 2wks Dr Siddiqui 1wk 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 Primary Care Provider Not On Staff Doctor Time spent on discharge: > 30 minutes Pending Labs Laboratory Tests Test 08/25/18 16:00 Urine Color YELLOW (YELLOW) Urine Clarity SLIGHTLY CLOUDY (CLEAR) Urine pH 6.0 (5.0-9.0) Urine Specific [place] 1.021 (1.003-1.030) Urine Ketones NEGATIVE mg/dL (NEGATIVE) Urine Nitrite NEGATIVE mg/dL (NEGATIVE) Urine Bilirubin NEGATIVE mg/dL (NEGATIVE) Urine Urobilinogen NEGATIVE mg/dL (NEGATIVE) Urine Leukocyte Esterase NEGATIVE Kathy/ul Urine Microscopic RBC 0 /HPF (0-5) Urine Microscopic WBC 0 /HPF (0-5) Urine Calcium Oxalate Crystals MODERATE /HPF (NONE SEEN) Urine Uric Acid Crystals MANY /HPF (NONE SEEN) Urine Mucus FEW /HPF (NONE SEEN) Urine Hemoglobin NEGATIVE mg/dL (NEGATIVE) Urine Glucose NEGATIVE mg/dL (NEGATIVE) Urine Total Protein NEGATIVE mg/dl (NEGATIVE) BANDAR AGRAWAL MD Aug 26, 2018 13:41
== END 2018-08-26 12:20 | disposition home health service (06) | DRG 372 ==
LOC: 2NE 02:10
PROVIDERS: ADMIT Family Medicine; ATTEND Internal Medicine
DX: A04.72 Enterocolitis due to Clostridium difficile, not specified as recurrent (principal); K86.1 Other chronic pancreatitis; J45.909 Unspecified asthma, uncomplicated; I10 Essential (primary) hypertension; K76.0 Fatty (change of) liver, not elsewhere classified; K57.90 Diverticulosis of intestine, part unspecified, without perforation or abscess without bleeding; E88.81 Metabolic syndrome and other insulin resistance; R62.7 Adult failure to thrive; Z68.32 Body mass index [BMI] 32.0-32.9, adult; N61.0 Mastitis without abscess
CPT/HCPCS: 74177; 74250; 76642; 80053; 80061; 80307; 81001; 81003; 82150; 82306; 82787; 83036; 83690; 83735; 84100; 84235; 84436; 84443; 84480; 85025; 85610; 85730; 86592; 86703; 87045; 87075; 87086; 87177; J1642; J1650; J2270; J2765; J3475; J7030; Q9967

== ENCOUNTER 2018-09-03 16:26 | Emergency (ER) | payer BC ==
[~2018-09-03] VITALS: Ht 152.4 cm; Wt 71.0 kg
[~2018-09-03 16:26] MED LIST changes: +ACET325T33 PO; -DEMEROL; +LACT1CAP28 PO; -SOMA; +Vancomycin Oral Syringe PO
[2018-09-03 16:34] VITALS: Ht 152.4 cm; Wt 71.0 kg
[2018-09-03] MEDS ORDERED: SOD CHLORIDE 0.9% 500 ML IV STA (17:30)
[2018-09-03] MEDS ORDERED: morphine 4 MG/ML VIAL IV STA (18:27)
[2018-09-03] MEDS ORDERED: CALC500T11 PO (18:41)
[2018-09-03] MEDS ORDERED: CARI350T29 PO (18:42)
[2018-09-03] MEDS ORDERED: AMLO5TAB4 PO (18:43)
[2018-09-03] MEDS ORDERED: BENA20TA4 PO (18:43)
[2018-09-03] MEDS ORDERED: ASPI-817 PO (18:44)
[2018-09-03] MEDS ORDERED: ONDANSETRON 4 MG INJ IV STA (19:01)
--- NOTE | 2018-09-03 19:10 | ERD ---
ER Documentation Chief Complaint Chief Complaint LLQ PAIN X 1 WEEK SENT BY MD SALAZAR 58-year-old female sent in by her primary care doctor for left lower quadrant pain for about 1 week. She was recently admitted to the hospital for C. difficile colitis 08/21/2018 - 08/26/2018. She was prescribed oral vancomycin but could not afford this medication and is unable to tolerate Flagyl so her colitis has not been treated appropriately. However she states that she is not having any more diarrhea and her bowel movements are appearing normal. She does complain of nausea with nonbilious and nonbloody vomiting. No fevers or chills. Her left lower quadrant pain is constant, nonradiating, aching, 9 out of 10. She also noticed a little lump at the site of her pain. She was sent here as her doctor was concerned about diverticulitis as the patient does have a history of diverticulosis. She denies any dysuria or hematuria. Of note, on her last admission the patient was getting heparin injections into her abdominal subcutaneous tissue. ROS All systems reviewed and are negative except as per history of present illness. Medications Home Meds Reported Medications Aspirin* (Aspirin* EC) 81 Mg Tablet.dr, 81 MG PO DAILY, TAB 09/03/18 Amlodipine Besylate* (Norvasc*) 5 Mg Tablet, 5 MG PO DAILY, TAB 09/03/18 Benazepril Hcl* (Benazepril Hcl*) 20 Mg Tablet, 20 MG PO DAILY, #30 TAB 09/03/18 Carisoprodol* (Carisoprodol*) 350 Mg Tablet, 350 MG PO DAILY PRN for MUSCLE SPASMS, TAB 09/03/18 Calcium Carbonate (Oysco-500) 500 Mg Tablet, 500 MG PO BID, TAB 09/03/18 Discontinued Reported Medications Benazepril Hcl* (Lotensin*) 20 Mg Tablet 08/12/09 Amlodipine Besylate* (Norvasc*) 5 Mg Tablet 08/12/09 [Pancreas Med] No Conflict Check 08/09/09 [Pepcid] No Conflict Check 08/09/09 [Albuterol] No Conflict Check 08/09/09 Discontinued Scripts Lactobacillus Rhamnosus GG (Culturelle) 1 Each Capsule, 1 CAP PO BID for 30 Days, CAP otc Prov:BANDAR AGRAWAL MD 08/23/18 Acetaminophen* (Tylenol*) 325 Mg Tablet, 650 MG PO Q6H PRN for PAIN LEVEL 1-3 OR FEVER for 1 Day, TAB Prov:BANDAR AGRAWAL MD 08/23/18 [Vancomycin Oral Syringe] 50 MG/ML SOLN No Conflict Check, 250 MG PO Q6 for 10 Days, #40 Prov:BANDAR AGRAWAL MD 08/23/18 Allergies Allergies: Coded Allergies: acetaminophen (Verified Allergy, Severe, RASH, 09/03/18) butorphanol (Verified Allergy, Severe, RASH, 09/03/18) codeine (Verified Allergy, Severe, RASH, 09/03/18) hydrocodone (Verified Allergy, Severe, RASH, 09/03/18) hydromorphone (Verified Allergy, Severe, RASH, 09/03/18) ketorolac (Verified Allergy, Severe, RASH,BREATHINGPROBL, 09/03/18) nalbuphine (Verified Allergy, Severe, RASH, 09/03/18) oxycodone (Verified Allergy, Severe, RASH,BREATHING, 09/03/18) pentazocine (Verified Allergy, Severe, CHRISTOPHER, 09/03/18) PMhx/Soc History of Surgery: Yes (BOWEL RESECTION) Anesthesia Reaction: No Hx Neurological Disorder: No Hx Respiratory Disorders: Yes (Asthma) Hx Cardiac Disorders: No Hx Psychiatric Problems: No Hx Miscellaneous Medical Probl: Yes (BOWEL OBSTRUCTION) Hx Alcohol Use: No Hx Substance Use: No Hx Tobacco Use: No Smoking Status: Never smoker FmHx Family History: No diabetes Physical Exam Vitals Vital Signs Date Temp Pulse Resp B/P (MAP) Pulse Ox O2 O2 Flow FiO2 Time Delivery Rate 09/03/18 98.2 91 20 113/73 99 Room Air 21:08 (86) 09/03/18 76 17 131/89 99 Room Air 19:06 (103) 09/03/18 98.6 90 18 133/76 99 16:34 (95) Physical Exam Const: No acute distress, nontoxic, in mild distress due to pain Head: Atraumatic Eyes: Normal Conjunctiva ENT: Normal External Ears, Nose and Mouth. Neck: Full range of motion. No meningismus. Chest wall: Right upper chest with port, no overlying cellulitis Resp: Clear to auscultation bilaterally Cardio: Regular rate and rhythm, no murmurs Abd: Soft, non tender, non distended. Ex lap scar noted. Left lower quadrant tender to light palpation with guarding. No obvious hernias felt. There is a small palpable mobile mass in the abdominal wall. normal bowel sounds Skin: No petechiae or rashes Back: No midline or flank tenderness Ext: No cyanosis, or edema Neur: Awake and alert Psych: Normal Mood and Affect Result Diagram: 09/03/18 1845 09/03/18 1845 Results 24 hrs Laboratory Tests Test 09/03/18 18:00 09/03/18 18:45 Urine Color YELLOW Urine Clarity CLEAR Urine pH 6.0 Urine Specific [employer] 1.018 Urine Ketones NEGATIVE mg/dL Urine Nitrite NEGATIVE mg/dL Urine Bilirubin NEGATIVE mg/dL Urine Urobilinogen NEGATIVE mg/dL Urine Leukocyte Esterase NEGATIVE Kathy/ul Urine Hemoglobin NEGATIVE mg/dL Urine Glucose NEGATIVE mg/dL Urine Total Protein NEGATIVE mg/dl White Blood Count 7.4 10^3/ul Red Blood Count 3.90 10^6/ul Hemoglobin 11.5 g/dl Hematocrit 35.7 % Mean Corpuscular Volume 91.5 fl Mean Corpuscular Hemoglobin 29.5 pg Mean Corpuscular Hemoglobin Concent 32.2 g/dl Red Cell Distribution Width 13.7 % Platelet Count 269 10^3/UL Mean Platelet Volume 10.0 fl Immature Granulocytes % 0.300 % Neutrophils % 58.1 % Lymphocytes % 33.3 % Monocytes % 6.9 % Eosinophils % 1.1 % Basophils % 0.3 % Nucleated Red Blood Cells % 0.0 /100WBC Immature Granulocytes # 0.020 10^3/ul Neutrophils # 4.3 10^3/ul Lymphocytes # 2.5 10^3/ul Monocytes # 0.5 10^3/ul Eosinophils # 0.1 10^3/ul Basophils # 0.0 10^3/ul Nucleated Red Blood Cells # 0.0 10^3/ul Sodium Level 139 mmol/L Potassium Level 4.0 mmol/L Chloride Level 105 mmol/L Carbon Dioxide Level 24 mmol/L Anion Gap 10 Blood Urea Nitrogen 15 mg/dl Creatinine 0.67 mg/dl Est Glomerular Filtrat Rate mL/min > 60 mL/min Glucose Level 100 mg/dl Calcium Level 9.6 mg/dl Total Bilirubin 0.0 mg/dl Direct Bilirubin 0.00 mg/dl Indirect Bilirubin 0.0 mg/dl Aspartate Amino Transf (AST/SGOT) 25 IU/L Alanine Aminotransferase (ALT/SGPT) 23 IU/L Alkaline Phosphatase 148 IU/L Total Protein 7.7 g/dl Albumin 4.2 g/dl Globulin 3.50 g/dl Albumin/Globulin Ratio 1.20 Current Medications Medications Dose Sig/Luz Maria Start Time Status Last (Trade) Ordered Route PRN Stop Time Admin Dose Reason Admin Sodium 500 ml @ Q1H STAT 09/03/18 DC 09/03/18 Chloride 500 mls/hr IV 17:30 19:08 09/03/18 18:29 Morphine 4 mg ONCE STAT 09/03/18 DC 09/03/18 Sulfate IV 18:27 19:09 (morphine) 09/03/18 18:28 Ondansetron 4 mg ONCE STAT 09/03/18 DC 09/03/18 HCl (Zofran IV 19:01 19:08 Inj) 09/03/18 19:02 Heparin 500 unit ONCE ONCE 09/03/18 DC 09/03/18 Sodium CATHETER 20:30 20:48 (Porcine) 09/03/18 20:31 (Heparin Flush (100 Units/ml)) Procedures/MDM EMERGENT LABS AND DIAGNOSTIC STUDIES: Lab Results above were reviewed and interpreted by me. CBC: mild anemia, no evidence of infection CMP: No evidence of electrolyte abnormality, renal failure, hypoglycemia, liver failure, or biliary obstruction UA: no evidence of infection Radiology Results as interpreted by Radiology below were reviewed by Eryn Leonardo MD: CT abdomen and pelvis: No acute abnormalities noted Initial Nursing notes reviewed. Previous Medical Records requested via the Electronic Health Record. EMERGENCY DEPARTMENT COURSE / MEDICAL DECISION MAKING: Patient is presenting with complaints of left lower quadrant pain with concern a bout a little mass she could feel in her abdominal wall. She is afebrile and hemodynamically stable. I doubt acute vascular emergency. Labs not show any significant abnormalities. CT of the abdomen and pelvis was done given her history of C. difficile that was not completely treated. However she has no leukocytosis and her CT did not show evidence of colitis. I suspect the pain she is feeling is from the abdominal wall, likely inflammation after multiple injections of heparin. I do not suspect acute surgical abdomen. Patient is stable for discharge with continued outpatient follow-up. I discussed her results with her. All questions were answered. Patient's blood pressure was elevated (>120/80) but appears stable without evidence of hypertensive emergency or urgency. The patient was counseled about the risks of hypertension and urged to pursue outpatient monitoring and therapy within a week with their primary care physician. Departure Diagnosis: Primary Impression: Abdominal pain Abdominal location: left lower quadrant Qualified Codes: R10.32 - Left lower quadrant pain Additional Impression: Abdominal wall pain in left lower quadrant Condition: Stable YOLANDA LEONARDO MD Sep 03, 2018 19:10
[2018-09-03] MEDS ORDERED: HEPARIN (100 UNITS/ML) 5 ML SYG CATHETER ONE (20:30)
[2018-09-03 21:08] VITALS: BP 113/73; PULSE 91; RESP 20
== END 2018-09-03 21:15 | disposition home or self-care (01) ==
LOC: E/R 16:26
DX: R10.32 Left lower quadrant pain (principal); J45.909 Unspecified asthma, uncomplicated
CPT/HCPCS: 36415; 74176; 80053; 81003; 85025; 87086; 96374; 96375; J1642; J2270; J2405; J7040; Z7502

== ENCOUNTER 2018-12-20 09:07 | Day surgery (SDC) | payer BC ==
[~2018-12-20] VITALS: Ht 152.4 cm; Wt 71.6 kg
[~2018-12-20 09:07] MED LIST changes: -ACET325T33 PO; -ALBUTEROL; -AMLO5TAB4; +AMLO5TAB4 PO; +ASPI-817 PO; +BENA20TA4 PO; -BENA20TA65; +CALC500T11 PO; +CARI350T29 PO; -LACT1CAP28 PO; -PANCREAS MED; -PEPCID; -Vancomycin Oral Syringe PO
[2018-12-20] MEDS ORDERED: ECHINACEA (10:50)
[2018-12-20] MEDS ORDERED: MUPIROCIN (10:50)
[2018-12-20] MEDS ORDERED: MORPHINE SULFATE (10:50)
[2018-12-20 10:52] VITALS: Ht 152.4 cm; Wt 71.6 kg
[2018-12-20 11:02] VITALS: BP 146/88; PULSE 89; RESP 18
--- NOTE | 2018-12-20 11:09 | HPN ---
Date/Time of Note Date/Time of Note DATE: 12/20/18 TIME: 11:09 Interval H&P Admission Note Pt. seen H&P reviewed: No system changes LISANDRA RUBALCAVA Dec 20, 2018 11:09
[2018-12-20] MEDS ORDERED: FENTAnyl 50 MCG/ML VIAL ONE (12:20)
[2018-12-20] MEDS ORDERED: LIDOCAINE 2% (SDV) 5 ML INJ ONE (12:20)
[2018-12-20] MEDS ORDERED: PROPOFOL 20 ML ONE (12:20)
[2018-12-20] MEDS ORDERED: PROPOFOL 200 MG INJ ONE (12:20)
--- NOTE | 2018-12-20 12:25 | PREAC ---
Date/Time of Note Date/Time of Note DATE: 12/20/18 TIME: 12:24 Anesthesia Eval and Record Evaluation Time Pre-Procedure Interview DATE: 12/20/18 TIME: 12:24 Age 58 Sex female NPO: 8 hrs Preoperative diagnosis NAUSEA, SCREENING Planned procedure EGD, COLONOSCOPY WITH BIOPSIES Past Medical History Past Medical History: Includes Cardio: HTN Pulm: Asthma Psych: Anxiety Surgery & Anesthesia Issues No known issue Meds Anticoagulation: No Beta Amy within 24 hr: No Reason Beta Amy not given: Pt. not on B-Amy Reported Medications [Echinacea] No Conflict Check 12/20/18 [Mupirocin] No Conflict Check 12/20/18 [Morphine Sulfate] No Conflict Check 12/20/18 Aspirin* (Aspirin* EC) 81 Mg Tablet.dr, 81 MG PO DAILY, TAB 09/03/18 Amlodipine Besylate* (Norvasc*) 5 Mg Tablet, 5 MG PO DAILY, TAB 09/03/18 Benazepril Hcl* (Benazepril Hcl*) 20 Mg Tablet, 20 MG PO DAILY, #30 TAB 09/03/18 Carisoprodol* (Carisoprodol*) 350 Mg Tablet, 350 MG PO DAILY PRN for MUSCLE SPASMS, TAB 09/03/18 Calcium Carbonate (Oysco-500) 500 Mg Tablet, 500 MG PO BID, TAB 09/03/18 Meds reviewed: Yes Allergies Coded Allergies: acetaminophen (Verified Allergy, Severe, RASH, 09/03/18) butorphanol (Verified Allergy, Severe, RASH, 09/03/18) codeine (Verified Allergy, Severe, RASH, 09/03/18) hydrocodone (Verified Allergy, Severe, RASH, 09/03/18) hydromorphone (Verified Allergy, Severe, RASH, 09/03/18) ketorolac (Verified Allergy, Severe, RASH,BREATHINGPROBL, 09/03/18) nalbuphine (Verified Allergy, Severe, RASH, 09/03/18) oxycodone (Verified Allergy, Severe, RASH,BREATHING, 09/03/18) pentazocine (Verified Allergy, Severe, CHRISTOPHER, 09/03/18) Allergies Reviewed: Yes Labs/Studies Labs Reviewed: Reviewed by anesthesiologist Result Diagram: 12/20/18 1120 12/20/18 1120 Laboratory Tests 12/20/18 11:20 test: N/A Pre-procedure Exam Last vitals Vital Signs Date Temp Pulse Resp B/P (MAP) Pulse Ox O2 O2 Flow FiO2 Time Delivery Rate 12/20/18 97.4 89 18 146/88 100 Room Air 11:02 (107) Airway: Adequate mouth opening, Adequate thyromental dist Mallampati: Mallampati II Teeth: Normal Lung: Normal Heart: Normal ASA Physical Status ASA physical status: 2 Emergency: None Planned Anesthetic General/MAC: MAC Planned Pain Management Parenteral pain med Pre-operative Attestations Prior to commencing anesthesia and surgery, the patient was re-evaluated, there was verification of: *The patient's identity *The results of appropriate recent lab work and preoperative vital signs *The above evaluation not changing prior to induction *Anesthetic plan, risk benefits, alternative and complications discussed with patient/family; questions answered; patient/family understands, accepts and wishes to proceed. Jessee Niño M.D. Dec 20, 2018 12:25
--- NOTE | 2018-12-20 13:08 | PAC ---
Date/Time of Note Date/Time of Note DATE: 12/20/18 TIME: 13:08 Post-Anesthesia Notes Post-Anesthesia Note Last documented vital signs Vital Signs Date Temp Pulse Resp B/P (MAP) Pulse Ox O2 O2 Flow FiO2 Time Delivery Rate 12/20/18 97.4 89 18 146/88 100 Room Air 11:02 (107) Activity: WNL Respiratory function: WNL Cardiovascular function: WNL Mental status: Baseline Pain reasonably controlled: Yes Hydration appropriate: Yes Nausea/Vomiting absent: Yes Jessee Niño M.D. Dec 20, 2018 13:08
[2018-12-20 13:19] VITALS: BP 112/68; PULSE 80; RESP 17
[2018-12-20] MEDS ORDERED: HEPARIN (100 UNITS/ML) 5 ML SYG CATHETER ONE (14:00)
== END 2018-12-20 13:10 | disposition home or self-care (01) ==
LOC: GIL 09:07
PROVIDERS: ATTEND Internal Medicine Gastroenterology
DX: Z12.11 Encounter for screening for malignant neoplasm of colon (principal); K64.4 Residual hemorrhoidal skin tags; K29.70 Gastritis, unspecified, without bleeding; J45.909 Unspecified asthma, uncomplicated
CPT/HCPCS: 43239; 45378; 80053; 85025; 85610; 85730; J1642; J3010; Z7610; 88305; 88312

== ENCOUNTER 2019-02-12 19:30 | Inpatient (IN) | payer BC ==
[~2019-02-12] VITALS: Ht 149.9 cm; Wt 78.2 kg
[~2019-02-12 19:30] MED LIST changes: +ECHINACEA; +MORPHINE SULFATE; +MUPIROCIN
[2019-02-12 22:05] VITALS: BP 106/77; PULSE 98; RESP 19
[2019-02-12 22:21] VITALS: Ht 149.9 cm; Wt 78.2 kg
[2019-02-13] MEDS ORDERED: NACL 0.9% 3 ML SYG IV SCH (01:00)
[2019-02-13] MEDS ORDERED: ALBUTEROL/IPRATROPIUM (NEB) 3 ML AMP HHN PRN (01:00)
[2019-02-13] MEDS: SOD CHLORIDE 0.9% 1,000 ML IV SCH ×3 (01:15→21:52)
[2019-02-13 02:00] VITALS: BP 88/55; PULSE 85; RESP 19
[2019-02-13] MEDS ORDERED: traMADol 50 MG TAB PO PRN (02:00)
[2019-02-13 03:06] VITALS: BP 92/53; PULSE 88
[2019-02-13] MEDS: morphine 4 MG/ML VIAL IV PRN ×5 (03:06→21:45)
[2019-02-13] MEDS: ONDANSETRON 4 MG INJ IV PRN (03:14)
--- NOTE | 2019-02-13 07:24 | HP ---
Date/Time of Note Date/Time of Note DATE: 02/12/19 TIME: 23:30 Assessment/Plan VTE Prophylaxis Risk score (from Ns)>0 risk: 3 SCD applied (from Ns): Yes Pharmacological prophylaxis: heparin Lines/Catheters IV Catheter Type (from Nrsg): brielle catheter Urinary Cath still in place: No Assessment/Plan Assessment/Plan 1. UTI, with possible right-sided pyelonephritis -IV antibiotic, IV fluid -follow-up UA and urine culture results -CT abdomen/pelvis at outside hospital was negative for acute findings 2. History of asthma: No acute exacerbation 3. History of sciatica: Patient awaiting spinal stimulator -Pain management. Note that patient has multiple drug allergies -Consult Dr. Noble in a.m. 4. Hypertension: Continue home meds, adjust as needed 5. History of pancreatitis: Patient denied alcohol abuse Result Diagram: 02/13/19 0430 02/13/19 0430 Results 24hrs Laboratory Tests Test 02/13/19 02:30 02/13/19 04:30 Urine Color YELLOW Urine Clarity SLIGHTLY CLOUDY A Urine pH 5.0 Urine Specific [place] 1.015 Urine Ketones 1+ H Urine Nitrite POSITIVE A Urine Bilirubin NEGATIVE Urine Urobilinogen NEGATIVE Urine Leukocyte Esterase 2+ H Urine Microscopic RBC 8 H Urine Microscopic WBC > 182 H Urine Bacteria FEW A Urine Mucus FEW A Urine Hemoglobin 2+ H Urine Glucose NEGATIVE Urine Total Protein 1+ H White Blood Count 16.7 #H Red Blood Count 3.16 #L Hemoglobin 9.4 #L Hematocrit 29.9 L Mean Corpuscular Volume 94.6 Mean Corpuscular Hemoglobin 29.7 Mean Corpuscular Hemoglobin Concent 31.4 L Red Cell Distribution Width 14.5 Platelet Count 207 # Mean Platelet Volume 10.0 Immature Granulocytes % 0.600 H Neutrophils % 85.6 H Lymphocytes % 9.6 L Monocytes % 4.0 Eosinophils % 0.1 Basophils % 0.1 Nucleated Red Blood Cells % 0.0 Immature Granulocytes # 0.100 H Neutrophils # 14.3 H Lymphocytes # 1.6 Monocytes # 0.7 Eosinophils # 0.0 Basophils # 0.0 Nucleated Red Blood Cells # 0.0 Sodium Level 144 Potassium Level 3.5 Chloride Level 110 Carbon Dioxide Level 24 Anion Gap 10 Blood Urea Nitrogen 10 Creatinine 0.75 Est Glomerular Filtrat Rate mL/min > 60 Glucose Level 183 Calcium Level 7.3 L Total Bilirubin 0.5 Direct Bilirubin 0.00 Indirect Bilirubin 0.5 Aspartate Amino Transf (AST/SGOT) 18 Alanine Aminotransferase (ALT/SGPT) 16 Alkaline Phosphatase 101 Total Protein 6.3 Albumin 3.1 L Globulin 3.20 Albumin/Globulin Ratio 0.96 HPI/ROS Admit Date/Time Admit Date/Time Feb 12, 2019 at 21:47 Hx of Present Illness This is a 59-year-old female with a history of asthma, hypertension, pancreatitis, small bowel resection, right breast cellulitis, C-difficile, sciatica, recurrent UTI who initially presented on outside hospital complaining of right-sided abdominal pain and right flank pain. Patient was diagnosed with a UTI and the transferred to [facility] for insurance reason. Her symptoms been going on for the past 2 days. She also reported dysuria and burning sensation on urination. She denied hematuria. Patient has a history of sciatica and actually awaiting a spinal stimulator. CT abdomen pelvis at the outside hospital was negative for acute findings. She was afebrile, white count almost to 15,000. PMH/Family/Social Past Medical History Past Surgical Hx: other (see hpi) Family History Significant Family History: no pertinent family hx Social History Alcohol Use: none Smoking Status: Never smoker Drug Use: none Exam Constitutional: other (no acute distress) Head: normocephalic, atraumatic Eyes: EOMI, PERRL Respiratory: clear to auscultation, normal air movement Cardiovascular: nl pulses Gastrointestinal: soft Extremities: normal pulses Medications Current Medications Sodium Chloride 1,000 ml @ 100 mls/hr Q10H IV Last administered on 02/13/19at 01:15; Admin Dose 100 MLS/HR; Start 02/13/19 at 00:45 IV Flush (NS 3 ml) 3 ml PER PROTOCOL IV ; Start 02/13/19 at 01:00 Ondansetron HCl (Zofran Inj) 4 mg Q6H PRN IV NAUSEA/VOMITING Last administered on 02/13/19at 03:14; Admin Dose 4 MG; Start 02/13/19 at 01:00 Heparin Sodium (Porcine) (Heparin (5000 Units/1ml)) 5,000 unit Q12 SC ; Start 02/13/19 at 09:00 Albuterol/ Ipratropium (Duoneb) 3 ml Q2H RESP THERAPY PRN HHN SHORTNESS OF BREATH; Start 02/13/19 at 01:00 Amlodipine Besylate (Norvasc) 5 mg DAILY PO ; Start 02/13/19 at 09:00 Tramadol HCl (Ultram) 50 mg Q6H PRN PO MODERATE PAIN LEVEL 4-6; Start 02/13/19 at 02:00 Morphine Sulfate (morphine) 3 mg Q4H PRN IV SEVERE PAIN LEVEL 7-10 Last administered on 02/13/19at 03:06; Admin Dose 3 MG; Start 02/13/19 at 02:30 Coded Allergies: acetaminophen (Verified Allergy, Severe, RASH, 09/03/18) butorphanol (Verified Allergy, Severe, RASH, 09/03/18) codeine (Verified Allergy, Severe, RASH, 09/03/18) hydrocodone (Verified Allergy, Severe, RASH, 09/03/18) hydromorphone (Verified Allergy, Severe, RASH, 09/03/18) ketorolac (Verified Allergy, Severe, RASH,BREATHINGPROBL, 09/03/18) nalbuphine (Verified Allergy, Severe, RASH, 09/03/18) oxycodone (Verified Allergy, Severe, RASH,BREATHING, 09/03/18) pentazocine (Verified Allergy, Severe, CHRISTOPHER, 09/03/18) Family History Significant Family History: no pertinent family hx Social History Smoking Status: Never smoker Exam/Review of Systems Vital Signs Vitals Vital Signs Date Temp Pulse Resp B/P (MAP) Pulse Ox O2 O2 Flow FiO2 Time Delivery Rate 02/13/19 88 92/53 (66) 03:06 02/13/19 98.1 19 99 02:00 Intake and Output 02/12/19 02/12/19 02/13/19 1515:00 23:00 07:00 IntakeIntake Total 625 ml BalanceBalance 625 ml Exam Constitutional: distress Head: normocephalic, atraumatic Neck: supple, non-tender Respiratory: clear to auscultation, normal air movement Cardiovascular: regular rate and rhythm, nl pulses Gastrointestinal: soft, other (Right sided abdominal and right flank pain) Extremities: normal pulses STEFF MCGHEE MD Feb 13, 2019 07:24
[2019-02-13 08:11] VITALS: BP 122/70; PULSE 82; RESP 17
[2019-02-13] MEDS ORDERED: AMLODIPINE 5 MG TAB PO SCH (09:00)
[2019-02-13] MEDS: HEPARIN 5,000 UNIT/1 ML VIAL SC SCH ×2 (09:25→20:56)
[2019-02-13] MEDS: CEFTRIAXONE 1 GM/50 ML (PMX) 50 ML IVPB SCH (09:26)
[2019-02-13] MEDS ORDERED: KETOROLAC 15 MG INJ IV STA (12:20)
[2019-02-13] MEDS ORDERED: KETOROLAC 15 MG INJ IV PRN (12:30)
--- NOTE | 2019-02-13 14:39 | PN ---
Date/Time of Note Date/Time of Note DATE: 02/13/19 TIME: 14:36 Assessment/Plan VTE Prophylaxis Risk score (from Nsg)>0 risk: 3 SCD applied (from Nsg): Yes Pharmacological prophylaxis: heparin Lines/Catheters IV Catheter Type (from Nrsg): brielle catheter Urinary Cath still in place: No Assessment/Plan Hospital Course 59 yo female wtih chronic lumbago, h/o SBO presents with likely UTI Sepsis likely from UTI: - Continue ceftriaxone, seems to be having good effect - Pain control - Cultures from outside hospital Anemia: - Check iron stores Sciatica H/o SBO Chronic pain syndrome Dc when stable Result Diagram: 02/13/19 0430 02/13/19 0430 Results 24hrs Laboratory Tests Test 02/13/19 02:30 02/13/19 04:30 Urine Color YELLOW Urine Clarity SLIGHTLY CLOUDY A Urine pH 5.0 Urine Specific [place] 1.015 Urine Ketones 1+ H Urine Nitrite POSITIVE A Urine Bilirubin NEGATIVE Urine Urobilinogen NEGATIVE Urine Leukocyte Esterase 2+ H Urine Microscopic RBC 8 H Urine Microscopic WBC > 182 H Urine Bacteria FEW A Urine Mucus FEW A Urine Hemoglobin 2+ H Urine Glucose NEGATIVE Urine Total Protein 1+ H White Blood Count 16.7 #H Red Blood Count 3.16 #L Hemoglobin 9.4 #L Hematocrit 29.9 L Mean Corpuscular Volume 94.6 Mean Corpuscular Hemoglobin 29.7 Mean Corpuscular Hemoglobin Concent 31.4 L Red Cell Distribution Width 14.5 Platelet Count 207 # Mean Platelet Volume 10.0 Immature Granulocytes % 0.600 H Neutrophils % 85.6 H Lymphocytes % 9.6 L Monocytes % 4.0 Eosinophils % 0.1 Basophils % 0.1 Nucleated Red Blood Cells % 0.0 Immature Granulocytes # 0.100 H Neutrophils # 14.3 H Lymphocytes # 1.6 Monocytes # 0.7 Eosinophils # 0.0 Basophils # 0.0 Nucleated Red Blood Cells # 0.0 Sodium Level 144 Potassium Level 3.5 Chloride Level 110 Carbon Dioxide Level 24 Anion Gap 10 Blood Urea Nitrogen 10 Creatinine 0.75 Est Glomerular Filtrat Rate mL/min > 60 Glucose Level 183 Calcium Level 7.3 L Total Bilirubin 0.5 Direct Bilirubin 0.00 Indirect Bilirubin 0.5 Aspartate Amino Transf (AST/SGOT) 18 Alanine Aminotransferase (ALT/SGPT) 16 Alkaline Phosphatase 101 Total Protein 6.3 Albumin 3.1 L Globulin 3.20 Albumin/Globulin Ratio 0.96 Subjective 24 Hr Interval Summary Free Text/Dictation Still with lots of pain in RLQ around to her back Fevers resolved Exam/Review of Systems Exam Vitals Vital Signs Date Temp Pulse Resp B/P (MAP) Pulse Ox O2 O2 Flow FiO2 Time Delivery Rate 02/13/19 98.2 82 17 122/70 99 08:11 (87) Intake and Output 02/12/19 02/12/19 02/13/19 1515:00 23:00 07:00 IntakeIntake Total 625 ml BalanceBalance 625 ml Constitutional: alert, oriented, well developed Psych: no complaints, nl mood/affect Head: normocephalic, atraumatic Eyes: nl conjunctiva, EOMI, nl lids, nl sclera, PERRL ENMT: nl external ears & nose, nl lips & teeth, nl nasal mucosa & septum Neck: supple, non-tender Respiratory: clear to auscultation, normal air movement Cardiovascular: regular rate and rhythm, nl pulses Gastrointestinal: soft, nl liver, spleen, non-tender Musculoskeletal: nl extremities to inspection, nl gait and stance Extremities: normal pulses 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, nl mental status, nl speech, nl strength Skin: nl turgor; No rash or lesions Lymph: nl lymph nodes Results Results 24hrs Laboratory Tests Test 02/13/19 02:30 02/13/19 04:30 Urine Color YELLOW Urine Clarity SLIGHTLY CLOUDY A Urine pH 5.0 Urine Specific [place] 1.015 Urine Ketones 1+ H Urine Nitrite POSITIVE A Urine Bilirubin NEGATIVE Urine Urobilinogen NEGATIVE Urine Leukocyte Esterase 2+ H Urine Microscopic RBC 8 H Urine Microscopic WBC > 182 H Urine Bacteria FEW A Urine Mucus FEW A Urine Hemoglobin 2+ H Urine Glucose NEGATIVE Urine Total Protein 1+ H White Blood Count 16.7 #H Red Blood Count 3.16 #L Hemoglobin 9.4 #L Hematocrit 29.9 L Mean Corpuscular Volume 94.6 Mean Corpuscular Hemoglobin 29.7 Mean Corpuscular Hemoglobin Concent 31.4 L Red Cell Distribution Width 14.5 Platelet Count 207 # Mean Platelet Volume 10.0 Immature Granulocytes % 0.600 H Neutrophils % 85.6 H Lymphocytes % 9.6 L Monocytes % 4.0 Eosinophils % 0.1 Basophils % 0.1 Nucleated Red Blood Cells % 0.0 Immature Granulocytes # 0.100 H Neutrophils # 14.3 H Lymphocytes # 1.6 Monocytes # 0.7 Eosinophils # 0.0 Basophils # 0.0 Nucleated Red Blood Cells # 0.0 Sodium Level 144 Potassium Level 3.5 Chloride Level 110 Carbon Dioxide Level 24 Anion Gap 10 Blood Urea Nitrogen 10 Creatinine 0.75 Est Glomerular Filtrat Rate mL/min > 60 Glucose Level 183 Calcium Level 7.3 L Total Bilirubin 0.5 Direct Bilirubin 0.00 Indirect Bilirubin 0.5 Aspartate Amino Transf (AST/SGOT) 18 Alanine Aminotransferase (ALT/SGPT) 16 Alkaline Phosphatase 101 Total Protein 6.3 Albumin 3.1 L Globulin 3.20 Albumin/Globulin Ratio 0.96 Medications Medication Current Medications Sodium Chloride 1,000 ml @ 100 mls/hr Q10H IV Last administered on 02/13/19 09:26; Admin Dose 100 MLS/HR; Start 02/13/19 at 00:45 IV Flush (NS 3 ml) 3 ml PER PROTOCOL IV ; Start 02/13/19 at 01:00 Ondansetron HCl (Zofran Inj) 4 mg Q6H PRN IV NAUSEA/VOMITING Last administered on 02/13/19 03:14; Admin Dose 4 MG; Start 02/13/19 at 01:00 Heparin Sodium (Porcine) (Heparin (5000 Units/1ml)) 5,000 unit Q12 SC Last administered on 02/13/19 09:25; Admin Dose 5,000 UNIT; Start 02/13/19 at 09:00 Albuterol/ Ipratropium (Duoneb) 3 ml Q2H RESP THERAPY PRN HHN SHORTNESS OF BREATH; Start 02/13/19 at 01:00 Tramadol HCl (Ultram) 50 mg Q6H PRN PO MODERATE PAIN LEVEL 4-6; Start 02/13/19 at 02:00 Morphine Sulfate (morphine) 3 mg Q4H PRN IV SEVERE PAIN LEVEL 7-10 Last administered on 02/13/19 12:22; Admin Dose 3 MG; Start 02/13/19 at 02:30 Ceftriaxone Sodium 50 ml @ 100 mls/hr Q24H IVPB Last administered on 02/13/19 09:26; Admin Dose 100 MLS/HR; Start 02/13/19 at 09:00 ELANA WINKLER MD Feb 13, 2019 14:39
[2019-02-13 19:40] VITALS: BP 122/62; PULSE 104; RESP 18
[2019-02-13 22:00] VITALS: PULSE 94
[2019-02-14 02:03] VITALS: BP 116/55; PULSE 102; RESP 17
[2019-02-14 04:42] VITALS: PULSE 94
[2019-02-14] MEDS: morphine 4 MG/ML VIAL IV PRN ×3 (05:49→18:35)
[2019-02-14 07:49] VITALS: BP 126/57; PULSE 88; RESP 18
[2019-02-14] MEDS: HEPARIN 5,000 UNIT/1 ML VIAL SC SCH ×2 (08:28→21:26)
[2019-02-14] MEDS: SOD CHLORIDE 0.9% 1,000 ML IV SCH ×2 (08:30→16:45)
[2019-02-14] MEDS: CEFTRIAXONE 1 GM/50 ML (PMX) 50 ML IVPB SCH (08:30)
--- NOTE | 2019-02-14 14:32 | PN ---
Date/Time of Note Date/Time of Note DATE: 02/14/19 TIME: 14:26 Assessment/Plan VTE Prophylaxis Risk score (from Nsg)>0 risk: 5 SCD applied (from Nsg): Yes Pharmacological prophylaxis: NA/contraindicated Pharm contraindication: low risk/ambulating Lines/Catheters IV Catheter Type (from Nrsg): Natalie Cath Urinary Cath still in place: No Assessment/Plan Hospital Course SUBJECTIVE: Lying in bed, having abdominal pain 10 out of 10. OBJECTIVE: Vital signs-see below PHYSICAL EXAM: Constitutional: Adequately built,not in acute distress. HEENT: Head atraumatic and normocephalic. Eyes: Extraocular muscles intact. Anicteric sclerae. Pupils equal bilaterally, reactive to light. NECK: Supple without lymph node. CHEST: Clear and good breath sounds equally. No wheezing. No rhonchi. HEART: S1, S2. Regular rate and rhythm. ABDOMEN: Tenderness to all 4 quadrants. Soft with no rebound tenderness. Bowel sounds were present. EXTREMITIES: No cyanosis, clubbing or edema. NEUROLOGIC: Alert and oriented x3. No focal deficit. No sensory deficit. PSYCHOSOCIAL: No signs of depression. INTEGUMENTARY: No open wounds. ASSESSMENT AND PLAN:59 yo female with chronic lumbago, h/o SBO presents with likely UTI Sepsis likely from UTI: - Continue ceftriaxone, seems to be having good effect - Pain control - Cultures from outside hospital-Request sent again today Abdominal pain -uti vs ?pancreattitis -Repeat CT as patient's pain has worsened over the 24 hours. Add lipase/amylase to a.m. labs. Anemia: - Check iron stores Sciatica -pain control H/o SBO Chronic pain syndrome -pain control Asthma -stable Obesity with a BMI 34.8 -Weight reduction advised. We will also add A1c and lipid panel to a.m. labs DVT prophylaxis: SCDs Disposition: Overall patient with worsening abdominal pain. At this time, we will go ahead and repeat her scan. We will also check for possible onset of pancreatic flares as she has a history of pancreatitis in the past. DC when pat ient symptoms are improved. Patient was seen in collaboration with Dr. Briceno. Result Diagram: 02/14/19 0430 02/14/19 0430 Results 24hrs Laboratory Tests Test 02/14/19 04:30 White Blood Count 9.5 # Red Blood Count 3.33 L Hemoglobin 10.0 L Hematocrit 30.7 L Mean Corpuscular Volume 92.2 Mean Corpuscular Hemoglobin 30.0 Mean Corpuscular Hemoglobin Concent 32.6 Red Cell Distribution Width 13.9 Platelet Count 219 Mean Platelet Volume 10.7 H Immature Granulocytes % 0.400 Neutrophils % 74.3 Lymphocytes % 17.9 Monocytes % 5.9 Eosinophils % 1.2 Basophils % 0.3 Nucleated Red Blood Cells % 0.0 Immature Granulocytes # 0.040 H Neutrophils # 7.0 Lymphocytes # 1.7 Monocytes # 0.6 Eosinophils # 0.1 Basophils # 0.0 Nucleated Red Blood Cells # 0.0 Sodium Level 140 Potassium Level 3.4 L Chloride Level 104 Carbon Dioxide Level 27 Anion Gap 9 Blood Urea Nitrogen 5 L Creatinine 0.72 Est Glomerular Filtrat Rate mL/min > 60 Glucose Level 178 Calcium Level 8.1 L Phosphorus Level 1.7 L Magnesium Level 1.9 Exam/Review of Systems Exam Vitals Vital Signs Date Temp Pulse Resp B/P (MAP) Pulse Ox O2 O2 Flow FiO2 Time Delivery Rate 02/14/19 99.1 88 18 126/57 94 07:49 (80) 02/14/19 Room Air 02:03 Intake and Output 02/13/19 02/13/19 02/14/19 1515:00 23:00 07:00 IntakeIntake Total 675 ml 1300 ml 700 ml BalanceBalance 675 ml 1300 ml 700 ml Results Results 24hrs Laboratory Tests Test 02/14/19 04:30 White Blood Count 9.5 # Red Blood Count 3.33 L Hemoglobin 10.0 L Hematocrit 30.7 L Mean Corpuscular Volume 92.2 Mean Corpuscular Hemoglobin 30.0 Mean Corpuscular Hemoglobin Concent 32.6 Red Cell Distribution Width 13.9 Platelet Count 219 Mean Platelet Volume 10.7 H Immature Granulocytes % 0.400 Neutrophils % 74.3 Lymphocytes % 17.9 Monocytes % 5.9 Eosinophils % 1.2 Basophils % 0.3 Nucleated Red Blood Cells % 0.0 Immature Granulocytes # 0.040 H Neutrophils # 7.0 Lymphocytes # 1.7 Monocytes # 0.6 Eosinophils # 0.1 Basophils # 0.0 Nucleated Red Blood Cells # 0.0 Sodium Level 140 Potassium Level 3.4 L Chloride Level 104 Carbon Dioxide Level 27 Anion Gap 9 Blood Urea Nitrogen 5 L Creatinine 0.72 Est Glomerular Filtrat Rate mL/min > 60 Glucose Level 178 Calcium Level 8.1 L Phosphorus Level 1.7 L Magnesium Level 1.9 Medications Medication Current Medications Sodium Chloride 1,000 ml @ 100 mls/hr Q10H IV Last administered on 02/14/19 08:30; Admin Dose 100 MLS/HR; Start 02/13/19 at 00:45 IV Flush (NS 3 ml) 3 ml PER PROTOCOL IV ; Start 02/13/19 at 01:00 Ondansetron HCl (Zofran Inj) 4 mg Q6H PRN IV NAUSEA/VOMITING Last administered on 02/13/19 03:14; Admin Dose 4 MG; Start 02/13/19 at 01:00 Heparin Sodium (Porcine) (Heparin (5000 Units/1ml)) 5,000 unit Q12 SC Last administered on 02/14/19 08:28; Admin Dose 5,000 UNIT; Start 02/13/19 at 09:00 Albuterol/ Ipratropium (Duoneb) 3 ml Q2H RESP THERAPY PRN HHN SHORTNESS OF BREATH; Start 02/13/19 at 01:00 Tramadol HCl (Ultram) 50 mg Q6H PRN PO MODERATE PAIN LEVEL 4-6; Start 02/13/19 at 02:00 Morphine Sulfate (morphine) 3 mg Q4H PRN IV SEVERE PAIN LEVEL 7-10 Last administered on 02/14/19 11:39; Admin Dose 3 MG; Start 02/13/19 at 02:30 Ceftriaxone Sodium 50 ml @ 100 mls/hr Q24H IVPB Last administered on 02/14/19 08:30; Admin Dose 100 MLS/HR; Start 02/13/19 at 09:00 CHASIDY BRICE NP Feb 14, 2019 14:32
[2019-02-14 14:35] VITALS: BP 137/74; PULSE 81; RESP 16
[2019-02-14] MEDS ORDERED: POTASSIUM PHOSPHATE 15 MM in SOD CHLORIDE 0.9% 250 ML IVPB ONE (16:00)
[2019-02-14] MEDS: ONDANSETRON 4 MG INJ IV PRN (17:05)
[2019-02-14] MEDS ORDERED: HYDROmorphONE 1 MG/ML SYG IV PRN (17:30)
[2019-02-14 20:20] VITALS: BP 131/69; PULSE 86; RESP 16
[2019-02-14] MEDS ORDERED: POLYETHYLENE GLYCOL 17 GM PACKET PO ONE (21:00)
[2019-02-14] MEDS: DOCUSATE SODIUM 100 MG CAP PO SCH (21:24)
[2019-02-15] MEDS: SOD CHLORIDE 0.9% 1,000 ML IV SCH (01:12)
[2019-02-15] MEDS: morphine 4 MG/ML VIAL IV PRN ×2 (01:20→15:55)
[2019-02-15] MEDS: ONDANSETRON 4 MG INJ IV PRN (01:20)
[2019-02-15 02:41] VITALS: BP 132/75; PULSE 82; RESP 16
[2019-02-15 08:36] VITALS: BP 141/80; PULSE 85; RESP 18
[2019-02-15] MEDS ORDERED: POLYETHYLENE GLYCOL 17 GM PACKET PO SCH (09:00)
[2019-02-15] MEDS: DOCUSATE SODIUM 100 MG CAP PO SCH (09:20)
[2019-02-15] MEDS: CEFTRIAXONE 1 GM/50 ML (PMX) 50 ML IVPB SCH (09:20)
[2019-02-15] MEDS: HEPARIN 5,000 UNIT/1 ML VIAL SC SCH (09:21)
[2019-02-15] MEDS ORDERED: CEFP200T2 PO (11:45)
--- NOTE | 2019-02-15 11:46 | PDOCDIS ---
Discharge Instructions DIAGNOSIS Discharge Diagnosis UTI CONDITION [id number] Patient Condition: [id number] Stable FOLLOW UP/APPOINTMENTS Follow-up Plan Complete your antibiotics as prescribed Return to the hospital if you have any concerning symptoms ELANA WINKLER MD Feb 15, 2019 11:46
[2019-02-15 14:47] VITALS: BP 128/80; PULSE 82; RESP 18
[2019-02-15] MEDS ORDERED: HEPARIN (100 UNITS/ML) 5 ML SYG CATHETER ONE (18:00)
== END 2019-02-15 21:02 | disposition home or self-care (01) | DRG 872 ==
LOC: PP2 21:47
PROVIDERS: ADMIT Hospitalist; ATTEND Internal Medicine
DX: A41.9 Sepsis, unspecified organism (principal); N39.0 Urinary tract infection, site not specified; I10 Essential (primary) hypertension; D64.9 Anemia, unspecified; G89.4 Chronic pain syndrome; M54.40 Lumbago with sciatica, unspecified side; J45.909 Unspecified asthma, uncomplicated; E66.9 Obesity, unspecified; Z87.19 Personal history of other diseases of the digestive system; Z87.09 Personal history of other diseases of the respiratory system; Z68.34 Body mass index [BMI] 34.0-34.9, adult
CPT/HCPCS: 74176; 80048; 80053; 80061; 81001; 82150; 83036; 83540; 83690; 83735; 84100; 85025; 87086; J0696; J1642; J1644; J2270; J2405; J7030; J7050

== ENCOUNTER 2019-04-01 23:47 | Inpatient (IN) | payer BC ==
[~2019-04-01] VITALS: Ht 149.9 cm; Wt 78.1 kg
[~2019-04-01 23:47] MED LIST changes: +ALBU18HF INHALATION; +BUDE6.9H INHALATION; +CEFP200T2 PO
[2019-04-02 02:15] VITALS: Ht 149.9 cm; Wt 78.1 kg
[2019-04-02 02:20] VITALS: BP 150/77; PULSE 88; RESP 18
[2019-04-02] MEDS ORDERED: DEXAMETHASONE 4 MG/ML 1 ML INJ IV ONE (02:30)
[2019-04-02] MEDS ORDERED: DOCUSATE SODIUM 100 MG CAP PO PRN (02:30)
[2019-04-02] MEDS ORDERED: BISACODYL (EC) 5 MG TAB PO PRN (02:30)
[2019-04-02] MEDS ORDERED: NACL 0.9% 3 ML SYG IV SCH (02:30)
[2019-04-02] MEDS ORDERED: PANTOPRAZOLE (EC) 40 MG TAB PO ONE (02:30)
[2019-04-02] MEDS ORDERED: ACETAMINOPHEN 325 MG TAB PO PRN (02:30)
[2019-04-02] MEDS: LIDOCAINE 5% PATCH TD SCH ×2 (02:30→09:02)
[2019-04-02] MEDS ORDERED: ONDANSETRON 4 MG INJ IV PRN (02:30)
--- NOTE | 2019-04-02 02:51 | HP ---
Date/Time of Note Date/Time of Note DATE: 04/02/19 TIME: 02:51 Assessment/Plan VTE Prophylaxis SCD applied (from Nsg): Yes Pharmacological prophylaxis: NA/contraindicated Pharm contraindication: low risk/ambulating Lines/Catheters IV Catheter Type (from Nrsg): Portacath Urinary Cath still in place: Yes Reason Cath still needed: other (indicate) (debility secondary to intractable back mendez) Assessment/Plan Hospital Course #1 Intractable back pain: concern for possible cauda equina syndrome. MRI read did not show signs concerning for cauda equina syndrome, however she reports urinary incontinence and rectal incontinence as well as decreased rectal sensation on exam. There is no rectal tone on my examination. This could be all possibly due to the acuity of the pain and not cauda equina however given her symptoms I did discuss the case with the neurosurgeon who will see the patient urgently. she did receive Decadron prior to transfer to [facility] I will give her an additional dose of Decadron. We will continue her Soma and morphine for pain management. I will keep her n.p.o. except meds until seen and evaluated by neurosurgery. #2 chronic back pain: Patient does report that she was too evaluated for pain stimulator placement. She has been unable to get all the authorizations that she needs including a consultation with a psychiatrist. Depending on her clini yudi course we may be able to have inpatient psychiatric evaluation for this. #2 asthma: Stable at the current time, PRN albuterol as indicated #3 hypertension: Resume amlodipine and lisinopril #4 chronic pancreatitis: Stable #5 obesity: We will check lipid panel, hemoglobin A1c, TSH #6 history of herpes: Patient is requesting HSV testing. #7 DVT GI prophylaxis: SCDs, no GI prophylaxis indicated Further treatment strategy will be implemented as per the clinical course. HPI/ROS Admit Date/Time Admit Date/Time Apr 02, 2019 at 01:38 Hx of Present Illness Chief complaint: Chronic back pain worse in the last 4 days, urinary and rectal incontinence This is a 59-year-old female who was transferred from [facility] where she presented with chronic back pain which got worse over the last 4 days. Patient reports that she has been walking around more lately as she has started a different job. She states that her pain normally is relieved with Soma. She has been awaiting to have a pain stimulator implanted but she is awaiting to be seen by a psychiatrist for a consultation as part of the clearance process which she has been unable to obtain secondary to her insurance. She reports that when her Soma's do not work she can usually goes to the ER.. She had an MRI of the lumbar spine performed which showed: Slight desiccation of the L4-5 disc with minimal approximately 1 to 2 mm central broad based bulging of disc material w ithout focal impression upon the thecal sac centrally. Degenerative changes of the facet joints are noted desiccated disc at the L5-S1 level with mild to moderate approximately 3 to 4 mm broad-based bulging of disc material with slight effacement of the thecal sac centrally. Degenerative changes of the facet joint are noted. Patient was subsequently transferred to [facility] secondary to insurance purposes. Upon arrival to [facility] patient did report that she had some i mprovement of her pain, but does report numbness down her bilateral lower extremities. she did receive morphine and steroids the transfer facility. Also reports difficulty ambulating. She is able to demonstrate full range of her bilateral lower extremities though it causes pain. She also reports that she has had issues with urinary incontinence as well as bowel incontinence for the past 2 days that was not their prior to this exacerbation. Allergies: Multiple please see EMR Medications: Albuterol 2 puffs every 6 hours as needed Amlodipine 5 mg p.o. daily Aspirin 81 mg p.o. daily Benazepril 20 mg p.o. daily symbicort 80-4.5 mcg 2 puffs as needed Carisoprodol 350 mg p.o. daily Calcium carbonate 500 mg p.o. twice daily ROS Const: Negative for fever, chills, weight gain or weight loss, fatigue, or diaphoresis Eyes : No pain discharge or redness or change in visual acuity ENT: No pain, sore throat, congestion, congestion, dysphagia or discharge Respiratory: No shortness of breath, cough, sputum, wheezing, or pleuritic pain Cardiovascular: No chest pain, palpitation, PND, or edema GI : no change in appetite, abdominal pain, nausea, vomiting, diarrhea, constipation, or change in the color his stool Genitourinary: No dysuria, hematuria, flank pain , discharge or CVA tenderness Musculoskeletal: No joint pain, back pain, neck pain, restricted range of motion in neck or joints Skin: No rash, bruising or hives Neuro: No headache, dizziness, syncope, seizure, focal weakness Endocrine: No polyuria, polydipsia, temperature intolerance Psych: No hallucination, depression, anxiety or suicidal ideation PMH/Family/Social Past Medical History Asthma, chronic pancreatitis, history of bowel obstruction, hypertension, sciatica Medications Current Medications IV Flush (NS 3 ml) 3 ml PER PROTOCOL IV ; Start 04/02/19 at 02:30 Ondansetron HCl (Zofran Inj) 4 mg Q4H PRN IV NAUSEA/VOMITING; Start 04/02/19 at 02:30 Morphine Sulfate (morphine) 2 mg Q4H PRN IV .SEVERE PAIN 7-10; Start 04/02/19 at 02:30 Docusate Sodium (Colace) 100 mg Q12H PRN PO .CONSTIPATION; Start 04/02/19 at 02:30 Bisacodyl (Dulcolax) 5 mg DAILY PRN PO .CONSTIPATION; Start 04/02/19 at 02:30 Heparin Sodium (Porcine) (Heparin (5000 Units/1ml)) 5,000 unit Q8 SC ; Start 04/02/19 at 06:00 Amlodipine Besylate (Norvasc) 5 mg DAILY PO ; Start 04/02/19 at 09:00 Aspirin (Halfprin) 81 mg DAILY PO ; Start 04/02/19 at 09:00 Benazepril HCl (Lotensin) 20 mg DAILY PO ; Start 04/02/19 at 09:00 Carisoprodol (Soma) 350 mg DAILY PRN PO MUSCLE SPASMS; Start 04/02/19 at 02:30 Pantoprazole (Protonix Tab) 40 mg DAILY@06 PO ; Start 04/03/19 at 06:00 Lidocaine (Lidoderm) 1 patch DAILY TD ; Start 04/02/19 at 02:30 Coded Allergies: butorphanol (Verified Allergy, Severe, RASH, 09/03/18) codeine (Verified Allergy, Severe, RASH, 09/03/18) hydrocodone (Verified Allergy, Severe, RASH, 09/03/18) hydromorphone (Verified Allergy, Severe, RASH, 09/03/18) ketorolac (Verified Allergy, Severe, RASH,BREATHINGPROBL, 09/03/18) nalbuphine (Verified Allergy, Severe, RASH, 09/03/18) oxycodone (Verified Allergy, Severe, RASH,BREATHING, 09/03/18) pentazocine (Verified Allergy, Severe, CHRISTOPHER, 09/03/18) Past Surgical History Port-A-Cath placement secondary to poor venous access, questionable previous bowel surgery Family History Significant Family History: no pertinent family hx Social History Alcohol Use: none Smoking Status: Never smoker Drug Use: none Exam/Review of Systems Vital Signs Vitals Vital Signs Date Temp Pulse Resp B/P (MAP) Pulse Ox O2 O2 Flow FiO2 Time Delivery Rate 04/02/19 97.7 88 18 150/77 97 Room Air 02:20 (101) Exam Exam The following exam was chaperoned by the patient's RN huan Vargas: Patient is currently lying in bed she does report pain as well as numbness in the bilateral legs, she does appear to be in moderate discomfort when she is asked to move to the side for the rectal examination. HEENT: Atraumatic, normocephalic. The pupils are equal, round and reactive. Extraocular motor are intact Neck: Supple with full range of motion. No rigidity or meningismus Chest: Nontender Lungs: Clear to auscultation bilaterally no crackles rales or wheezing Heart: Normal S1-S2, Regular rhythm and rate. No murmur, S3, or S4 Abdomen: Obese,, soft , nontender, nondistended , bowel sounds are present. No guarding no rebound tenderness , No masses or organomegaly. No costovertebral temporal angle mass Genitourinary: Patient does report rectal and urinary incontinence which is new over the last 2 days. musculoskeletal: mild tenderness of the lumbar spine on exam Extremities: Patient is able to move bilateral lower extremities though she does have pain while doing so. Neurologic: Normal mental status, speech normal, cranial nerves II through XII are intact, patient is able to move her legs bilaterally though she does report pain, numbness. She does report numbness of her bilateral legs. No rectal tone appreciated on exam, patient also reported decreased sensation during rectal examination as well. MONICA DARNELL Apr 02, 2019 02:51
[2019-04-02] MEDS: morphine 2 MG INJ IV PRN ×4 (03:41→18:26)
[2019-04-02] MEDS: HEPARIN 5,000 UNIT/1 ML VIAL SC SCH ×3 (07:03→23:54)
[2019-04-02 07:12] VITALS: BP 109/67; PULSE 94; RESP 18
[2019-04-02] MEDS ORDERED: SOD CHLORIDE 0.9% 1,000 ML IV SCH (08:30)
[2019-04-02] MEDS: ASPIRIN (EC) 81 MG TAB PO SCH (08:53)
[2019-04-02] MEDS: ALBUTEROL HFA 8 GM INHALER INH SCH ×2 (08:54→14:17)
[2019-04-02] MEDS: BENAZEPRIL 20 MG TAB PO SCH (08:56)
[2019-04-02] MEDS: AMLODIPINE 5 MG TAB PO SCH (08:56)
[2019-04-02] MEDS ORDERED: NON-FORMULARY/PATIENT OWN MED (Budesonide-Formoterol Fumarate* (Symbicort*) 2 PUFF) INHALATION SCH (09:00)
[2019-04-02] MEDS: CARISOPRODOL 350 MG TAB PO PRN (13:26)
[2019-04-02 14:29] VITALS: BP 121/64; PULSE 91; RESP 18
--- NOTE | 2019-04-02 15:13 | CONS ---
Assessment/Plan Assessment/Plan Assessment/Plan (Daily) 59 year old female with back pain and weakness, but no radiologic findings. She is scheduled to have a spinal cord stim placed elsewhere and should proceed with that. No indication for neuro-surgery at this time. Consultation Date/Type/Reason Admit Date/Time Apr 02, 2019 at 01:38 Date of Consultation: Apr 02, 2019 Type of Consult Neurosurgery Date/Time of Note DATE: 04/02/19 TIME: 14:46 Hx of Present Illness 59 year old female with long-standing history of low back pain, diffuse leg weakness, and numbness. She was transferred from outside hospital for back pain. MRI was done there, which showed an L5/S1 disc bulge. She also notes incontinence Past Medical History Home Meds Active Scripts Cefpodoxime Proxetil* (Cefpodoxime Proxetil*) 200 Mg Tablet, 200 MG PO Q12 for 2 Days, #4 TAB Prov:ELANA WINKLER MD 02/15/19 Reported Medications Budesonide-Formoterol Fumarate* (Symbicort*) 80-4.5 Mcg Hfa.aer.ad, 2 PUFF INHALATION BID, BOTTLE 04/02/19 Albuterol Sulfate* (Ventolin HFA*) 18 Gm Hfa.aer.ad, 2 PUFF INHALATION Q6H, #1 INHALER 04/02/19 [Echinacea] No Conflict Check 12/20/18 [Mupirocin] No Conflict Check 12/20/18 [Morphine Sulfate] No Conflict Check 12/20/18 Aspirin* (Aspirin* EC) 81 Mg Tablet.dr, 81 MG PO DAILY, TAB 09/03/18 Amlodipine Besylate* (Norvasc*) 5 Mg Tablet, 5 MG PO DAILY, TAB 09/03/18 Benazepril Hcl* (Benazepril Hcl*) 20 Mg Tablet, 20 MG PO DAILY, #30 TAB 09/03/18 Carisoprodol* (Carisoprodol*) 350 Mg Tablet, 350 MG PO DAILY PRN for MUSCLE SPASMS, TAB 09/03/18 Calcium Carbonate (Oysco-500) 500 Mg Tablet, 500 MG PO BID, TAB 09/03/18 Medications Current Medications IV Flush (NS 3 ml) 3 ml PER PROTOCOL IV ; Start 04/02/19 at 02:30 Ondansetron HCl (Zofran Inj) 4 mg Q4H PRN IV NAUSEA/VOMITING; Start 04/02/19 at 02:30 Morphine Sulfate (morphine) 2 mg Q4H PRN IV .SEVERE PAIN 7-10 Last administered on 04/02/19at 14:24; Admin Dose 2 MG; Start 04/02/19 at 02:30 Docusate Sodium (Colace) 100 mg Q12H PRN PO .CONSTIPATION; Start 04/02/19 at 02:30 Bisacodyl (Dulcolax) 5 mg DAILY PRN PO .CONSTIPATION; Start 04/02/19 at 02:30 Heparin Sodium (Porcine) (Heparin (5000 Units/1ml)) 5,000 unit Q8 SC Last administered on 04/02/19 14:17; Admin Dose 5,000 UNIT; Start 04/02/19 at 06:00 Amlodipine Besylate (Norvasc) 5 mg DAILY PO Last administered on 04/02/19at 08:56; Admin Dose 5 MG; Start 04/02/19 at 09:00 Aspirin (Halfprin) 81 mg DAILY PO Last administered on 04/02/19 08:53; Admin Dose 81 MG; Start 04/02/19 at 09:00 Benazepril HCl (Lotensin) 20 mg DAILY PO Last administered on 04/02/19 08:56; Admin Dose 20 MG; Start 04/02/19 at 09:00 Carisoprodol (Soma) 350 mg DAILY PRN PO MUSCLE SPASMS Last administered on 04/02/19at 13:26; Admin Dose 350 MG; Start 04/02/19 at 02:30 Pantoprazole (Protonix Tab) 40 mg DAILY@06 PO ; Start 04/03/19 at 06:00 Lidocaine (Lidoderm) 1 patch DAILY TD Last administered on 04/02/19 09:02; Admin Dose 1 PATCH; Start 04/02/19 at 02:30 Albuterol (Ventolin Hfa) 2 puff Q6H RESP THERAPY INH Last administered on 04/02/19at 14:17; Admin Dose 2 PUFF; Start 04/02/19 at 08:00 Miscellaneous Information 2 puff BID INHALATION ; Start 04/02/19 at 09:00; Status UNV Sodium Chloride 1,000 ml @ 60 mls/hr [id number] IV Last administered on 04/02/19at 09:01; Admin Dose 60 MLS/HR; Start 04/02/19 at 08:30 Allergies: Coded Allergies: butorphanol (Verified Allergy, Severe, RASH, 09/03/18) codeine (Verified Allergy, Severe, RASH, 09/03/18) hydrocodone (Verified Allergy, Severe, RASH, 09/03/18) hydromorphone (Verified Allergy, Severe, RASH, 09/03/18) ketorolac (Verified Allergy, Severe, RASH,BREATHINGPROBL, 09/03/18) nalbuphine (Verified Allergy, Severe, RASH, 09/03/18) oxycodone (Verified Allergy, Severe, RASH,BREATHING, 09/03/18) pentazocine (Verified Allergy, Severe, CHRISTOPHER, 09/03/18) Social History Alcohol Use: none Smoking Status: Never smoker Drug Use: none Exam/Review of Systems Exam Vitals Vital Signs Date Temp Pulse Resp B/P (MAP) Pulse Ox O2 O2 Flow FiO2 Time Delivery Rate 04/02/19 98.3 91 18 121/64 99 Room Air 14:29 (83) Intake and Output 04/01/19 04/01/19 04/02/19 1515:00 23:00 07:00 IntakeIntake Total 660 ml OutputOutput Total 800 ml BalanceBalance -140 ml Exam 4/5 strength (pain limited in legs), diffuse numbness Results Results 24hrs Laboratory Tests Test 04/02/19 04:54 04/02/19 04:59 Hemoglobin A1c 5.9 Thyroid Stimulating Hormone (TSH) 0.460 L Triglycerides Level 109 Cholesterol Level 237 H LDL Cholesterol, Calculated 173 HDL Cholesterol 42 Cholesterol/HDL Ratio 5.6 Imaging Imaging very small disc bulge at L5/S1 not compressing any nerves Medications Medication Current Medications IV Flush (NS 3 ml) 3 ml PER PROTOCOL IV ; Start 04/02/19 at 02:30 Ondansetron HCl (Zofran Inj) 4 mg Q4H PRN IV NAUSEA/VOMITING; Start 04/02/19 at 02:30 Morphine Sulfate (morphine) 2 mg Q4H PRN IV .SEVERE PAIN 7-10 Last administered on 04/02/19at 14:24; Admin Dose 2 MG; Start 04/02/19 at 02:30 Docusate Sodium (Colace) 100 mg Q12H PRN PO .CONSTIPATION; Start 04/02/19 at 02:30 Bisacodyl (Dulcolax) 5 mg DAILY PRN PO .CONSTIPATION; Start 04/02/19 at 02:30 Heparin Sodium (Porcine) (Heparin (5000 Units/1ml)) 5,000 unit Q8 SC Last administered on 04/02/19 14:17; Admin Dose 5,000 UNIT; Start 04/02/19 at 06:00 Amlodipine Besylate (Norvasc) 5 mg DAILY PO Last administered on 04/02/19 08:56; Admin Dose 5 MG; Start 04/02/19 at 09:00 Aspirin (Halfprin) 81 mg DAILY PO Last administered on 04/02/19 08:53; Admin Dose 81 MG; Start 04/02/19 at 09:00 Benazepril HCl (Lotensin) 20 mg DAILY PO Last administered on 04/02/19 08:56; Admin Dose 20 MG; Start 04/02/19 at 09:00 Carisoprodol (Soma) 350 mg DAILY PRN PO MUSCLE SPASMS Last administered on 04/02/19 13:26; Admin Dose 350 MG; Start 04/02/19 at 02:30 Pantoprazole (Protonix Tab) 40 mg DAILY@06 PO ; Start 04/03/19 at 06:00 Lidocaine (Lidoderm) 1 patch DAILY TD Last administered on 04/02/19 09:02; Admin Dose 1 PATCH; Start 04/02/19 at 02:30 Albuterol (Ventolin Hfa) 2 puff Q6H RESP THERAPY INH Last administered on 04/02/19 14:17; Admin Dose 2 PUFF; Start 04/02/19 at 08:00 Miscellaneous Information 2 puff BID INHALATION ; Start 04/02/19 at 09:00; Status UNV Sodium Chloride 1,000 ml @ 60 mls/hr [id number] IV Last administered on 04/02/19 09:01; Admin Dose 60 MLS/HR; Start 04/02/19 at 08:30 KAMAR RODRÍGUEZ MD Apr 02, 2019 15:08
--- NOTE | 2019-04-02 19:01 | PN ---
Date/Time of Note Date/Time of Note DATE: 04/02/19 TIME: 18:58 Assessment/Plan VTE Prophylaxis Risk score (from Nsg)>0 risk: 4 SCD applied (from Nsg): Yes SCD contraindicated: low risk/ambulating Pharmacological prophylaxis: LMWH Lines/Catheters IV Catheter Type (from Nrsg): portacath Urinary Cath still in place: Yes Reason Cath still needed: urinary retention Assessment/Plan Hospital Course Assessment and plan 1. Acute on chronic back pain, stable continue supportive care. Apparently patient to have a spinal nerve stimulator implanted. Needs perioperative/medicine/behavioral health clearance prior to this procedure. 2. Incontinence? No cauda equina syndrome. No NS intervention needed 3. Hypertension 4. DJD 5. Chronic asthma 6. Chronic pancreatitis 7. History of herpes, patient wants new testing 8. Failure to thrive, stable discharge home versus SNF Subjective moderate pain unable to walk. No fever Objective: Vital signs stable Physical exam No pallor Regular Clear Benign No edema; reflexes symmetrical diminished Results 24hrs Laboratory Tests Test 04/02/19 04:54 04/02/19 04:59 Hemoglobin A1c 5.9 Thyroid Stimulating Hormone (TSH) 0.460 L Triglycerides Level 109 Cholesterol Level 237 H LDL Cholesterol, Calculated 173 HDL Cholesterol 42 Cholesterol/HDL Ratio 5.6 Exam/Review of Systems Exam Vitals Vital Signs Date Temp Pulse Resp B/P (MAP) Pulse Ox O2 O2 Flow FiO2 Time Delivery Rate 04/02/19 98.3 91 18 121/64 99 Room Air 14:29 (83) Intake and Output 04/01/19 04/01/19 04/02/19 1515:00 23:00 07:00 IntakeIntake Total 660 ml OutputOutput Total 800 ml BalanceBalance -140 ml Results Results 24hrs Laboratory Tests Test 04/02/19 04:54 04/02/19 04:59 Hemoglobin A1c 5.9 Thyroid Stimulating Hormone (TSH) 0.460 L Triglycerides Level 109 Cholesterol Level 237 H LDL Cholesterol, Calculated 173 HDL Cholesterol 42 Cholesterol/HDL Ratio 5.6 Medications Medication Current Medications IV Flush (NS 3 ml) 3 ml PER PROTOCOL IV ; Start 04/02/19 at 02:30 Ondansetron HCl (Zofran Inj) 4 mg Q4H PRN IV NAUSEA/VOMITING; Start 04/02/19 at 02:30 Morphine Sulfate (morphine) 2 mg Q4H PRN IV .SEVERE PAIN 7-10 Last administered on 04/02/19 18:26; Admin Dose 2 MG; Start 04/02/19 at 02:30 Docusate Sodium (Colace) 100 mg Q12H PRN PO .CONSTIPATION; Start 04/02/19 at 02:30 Bisacodyl (Dulcolax) 5 mg DAILY PRN PO .CONSTIPATION; Start 04/02/19 at 02:30 Heparin Sodium (Porcine) (Heparin (5000 Units/1ml)) 5,000 unit Q8 SC Last administered on 04/02/19 14:17; Admin Dose 5,000 UNIT; Start 04/02/19 at 06:00 Amlodipine Besylate (Norvasc) 5 mg DAILY PO Last administered on 04/02/19 08:56; Admin Dose 5 MG; Start 04/02/19 at 09:00 Aspirin (Halfprin) 81 mg DAILY PO Last administered on 04/02/19 08:53; Admin Dose 81 MG; Start 04/02/19 at 09:00 Benazepril HCl (Lotensin) 20 mg DAILY PO Last administered on 04/02/19 08:56; Admin Dose 20 MG; Start 04/02/19 at 09:00 Carisoprodol (Soma) 350 mg DAILY PRN PO MUSCLE SPASMS Last administered on 04/02/19 13:26; Admin Dose 350 MG; Start 04/02/19 at 02:30 Pantoprazole (Protonix Tab) 40 mg DAILY@06 PO ; Start 04/03/19 at 06:00 Lidocaine (Lidoderm) 1 patch DAILY TD Last administered on 04/02/19 09:02; Admin Dose 1 PATCH; Start 04/02/19 at 02:30 Albuterol (Ventolin Hfa) 2 puff Q6H RESP THERAPY INH Last administered on 04/02/19 14:17; Admin Dose 2 PUFF; Start 04/02/19 at 08:00 Miscellaneous Information 2 puff BID INHALATION ; Start 04/02/19 at 09:00; Status BANDAR BANSAL MD Apr 02, 2019 19:00
[2019-04-02] MEDS ORDERED: HYDROCODONE/APAP (10/325) TAB PO PRN (19:30)
[2019-04-02] MEDS ORDERED: ALBUTEROL HFA 8 GM INHALER INH PRN (19:30)
[2019-04-02] MEDS ORDERED: IBUPROFEN 800 MG TAB PO SCH (19:30)
[2019-04-02 19:55] VITALS: BP 109/58; PULSE 84; RESP 18
[2019-04-02] MEDS ORDERED: BUDESONIDE (NEB) 0.5MG/2ML AMP HHN SCH (20:00)
[2019-04-02] MEDS ORDERED: morphine 2 MG INJ IV PRN (20:30)
[2019-04-02] MEDS: GABAPENTIN 100 MG CAP PO SCH (20:41)
[2019-04-02] MEDS: morphine 4 MG/ML VIAL IV PRN (23:36)
[2019-04-03 02:00] VITALS: BP 116/58; PULSE 76; RESP 18
[2019-04-03] MEDS: morphine 4 MG/ML VIAL IV PRN ×5 (02:32→19:57)
[2019-04-03] MEDS ORDERED: DIPHENHYDRAMINE 50 MG INJ IM PRN (03:00)
[2019-04-03] MEDS: DIPHENHYDRAMINE 50 MG CAP PO PRN ×2 (03:17→08:58)
[2019-04-03] MEDS: PANTOPRAZOLE (EC) 40 MG TAB PO SCH (06:59)
[2019-04-03] MEDS: HEPARIN 5,000 UNIT/1 ML VIAL SC SCH ×2 (07:26→14:46)
[2019-04-03 07:43] VITALS: BP 127/65; PULSE 71; RESP 18
[2019-04-03] MEDS: CARISOPRODOL 350 MG TAB PO PRN (08:58)
[2019-04-03] MEDS: ASPIRIN (EC) 81 MG TAB PO SCH (08:58)
[2019-04-03] MEDS: FLUTICASONE/VILANTEROL 100-25 INH SCH (08:58)
[2019-04-03] MEDS: SENNA/DOCUSATE NA (8.6MG/50MG) TAB PO SCH (08:58)
[2019-04-03] MEDS: GABAPENTIN 100 MG CAP PO SCH ×3 (08:58→20:22)
[2019-04-03] MEDS: AMLODIPINE 5 MG TAB PO SCH (08:59)
[2019-04-03] MEDS: BENAZEPRIL 20 MG TAB PO SCH (08:59)
[2019-04-03] MEDS: LIDOCAINE 5% PATCH TD SCH (09:00)
[2019-04-03] MEDS ORDERED: DIPHENHYDRAMINE 50 MG INJ IV PRN (09:00)
[2019-04-03 14:30] VITALS: BP 130/72; PULSE 79; RESP 18
--- NOTE | 2019-04-03 15:01 | PN ---
Date/Time of Note Date/Time of Note DATE: 04/03/19 TIME: 14:59 Assessment/Plan VTE Prophylaxis Risk score (from Nsg)>0 risk: 4 SCD applied (from Nsg): Yes SCD contraindicated: low risk/ambulating Pharmacological prophylaxis: LMWH Lines/Catheters IV Catheter Type (from Nrsg): portacath Urinary Cath still in place: Yes Reason Cath still needed: other (indicate) (not indicated) Assessment/Plan Hospital Course Assessment and plan 1. Acute on chronic back pain, stable continue supportive care. Apparently patient to have a spinal nerve stimulator implanted. Needs perioperative/medicine/behavioral health clearance prior to this procedure. 2. Incontinence? No cauda equina syndrome. No NS intervention needed 3. Hypertension 4. DJD 5. Chronic asthma 6. Chronic pancreatitis 7. History of herpes, patient wants new testing 8. Failure to thrive, stable discharge home versus SNF Subjective moderate pain unable to walk. No fever Objective: Vital signs stable Physical exam No pallor Regular Clear Benign No edema; reflexes symmetrical diminished Result Diagram: 04/03/19 0431 04/03/19 0431 Results 24hrs Laboratory Tests Test 04/03/19 04:30 04/03/19 04:31 Prothrombin Time 13.2 Prothrombin Time Ratio 1.0 INR International Normalized Ratio 0.99 Phosphorus Level 3.4 Magnesium Level 1.8 Vitamin B12 Level 686 Free Thyroxine 0.70 Total Triiodothyronine 0.90 L White Blood Count 10.8 # Red Blood Count 3.50 L Hemoglobin 10.3 L Hematocrit 33.4 L Mean Corpuscular Volume 95.4 Mean Corpuscular Hemoglobin 29.4 Mean Corpuscular Hemoglobin Concent 30.8 L Red Cell Distribution Width 15.1 H Platelet Count 254 Mean Platelet Volume 9.5 Immature Granulocytes % 0.300 Neutrophils % 67.4 Lymphocytes % 25.9 Monocytes % 5.8 Eosinophils % 0.4 Basophils % 0.2 Nucleated Red Blood Cells % 0.0 Immature Granulocytes # 0.030 Neutrophils # 7.3 Lymphocytes # 2.8 Monocytes # 0.6 Eosinophils # 0.0 Basophils # 0.0 Nucleated Red Blood Cells # 0.0 Sodium Level 140 Potassium Level 3.9 Chloride Level 107 Carbon Dioxide Level 28 Anion Gap 5 Blood Urea Nitrogen 17 Creatinine 0.69 Est Glomerular Filtrat Rate mL/min > 60 Glucose Level 178 Calcium Level 8.3 L Total Bilirubin 0.2 Direct Bilirubin 0.00 Indirect Bilirubin 0.2 Aspartate Amino Transf (AST/SGOT) 23 Alanine Aminotransferase (ALT/SGPT) 29 Alkaline Phosphatase 132 H Total Protein 7.3 Albumin 3.7 Globulin 3.60 H Albumin/Globulin Ratio 1.02 Thyroid Stimulating Hormone (TSH) 2.950 Exam/Review of Systems Exam Vitals Vital Signs Date Temp Pulse Resp B/P (MAP) Pulse Ox O2 O2 Flow FiO2 Time Delivery Rate 04/03/19 98.8 71 18 127/65 95 07:43 (85) 04/02/19 Room Air 14:29 Intake and Output 04/02/19 04/02/19 04/03/19 1515:00 23:00 07:00 IntakeIntake Total 200 ml 720 ml 700 ml OutputOutput Total 1200 ml BalanceBalance 200 ml 720 ml -500 ml Results Results 24hrs Laboratory Tests Test 04/03/19 04:30 04/03/19 04:31 Prothrombin Time 13.2 Prothrombin Time Ratio 1.0 INR International Normalized Ratio 0.99 Phosphorus Level 3.4 Magnesium Level 1.8 Vitamin B12 Level 686 Free Thyroxine 0.70 Total Triiodothyronine 0.90 L White Blood Count 10.8 # Red Blood Count 3.50 L Hemoglobin 10.3 L Hematocrit 33.4 L Mean Corpuscular Volume 95.4 Mean Corpuscular Hemoglobin 29.4 Mean Corpuscular Hemoglobin Concent 30.8 L Red Cell Distribution Width 15.1 H Platelet Count 254 Mean Platelet Volume 9.5 Immature Granulocytes % 0.300 Neutrophils % 67.4 Lymphocytes % 25.9 Monocytes % 5.8 Eosinophils % 0.4 Basophils % 0.2 Nucleated Red Blood Cells % 0.0 Immature Granulocytes # 0.030 Neutrophils # 7.3 Lymphocytes # 2.8 Monocytes # 0.6 Eosinophils # 0.0 Basophils # 0.0 Nucleated Red Blood Cells # 0.0 Sodium Level 140 Potassium Level 3.9 Chloride Level 107 Carbon Dioxide Level 28 Anion Gap 5 Blood Urea Nitrogen 17 Creatinine 0.69 Est Glomerular Filtrat Rate mL/min > 60 Glucose Level 178 Calcium Level 8.3 L Total Bilirubin 0.2 Direct Bilirubin 0.00 Indirect Bilirubin 0.2 Aspartate Amino Transf (AST/SGOT) 23 Alanine Aminotransferase (ALT/SGPT) 29 Alkaline Phosphatase 132 H Total Protein 7.3 Albumin 3.7 Globulin 3.60 H Albumin/Globulin Ratio 1.02 Thyroid Stimulating Hormone (TSH) 2.950 Medications Medication Current Medications IV Flush (NS 3 ml) 3 ml PER PROTOCOL IV ; Start 04/02/19 at 02:30 Ondansetron HCl (Zofran Inj) 4 mg Q4H PRN IV NAUSEA/VOMITING; Start 04/02/19 at 02:30 Docusate Sodium (Colace) 100 mg Q12H PRN PO .CONSTIPATION; Start 04/02/19 at 02:30 Bisacodyl (Dulcolax) 5 mg DAILY PRN PO .CONSTIPATION; Start 04/02/19 at 02:30 Heparin Sodium (Porcine) (Heparin (5000 Units/1ml)) 5,000 unit Q8 SC Last administered on 04/03/19 14:46; Admin Dose 5,000 UNIT; Start 04/02/19 at 06:00 Amlodipine Besylate (Norvasc) 5 mg DAILY PO Last administered on 04/03/19 08:59; Admin Dose 5 MG; Start 04/02/19 at 09:00 Aspirin (Halfprin) 81 mg DAILY PO Last administered on 04/03/19 08:58; Admin Dose 81 MG; Start 04/02/19 at 09:00 Benazepril HCl (Lotensin) 20 mg DAILY PO Last administered on 04/03/19 08:59; Admin Dose 20 MG; Start 04/02/19 at 09:00 Carisoprodol (Soma) 350 mg DAILY PRN PO MUSCLE SPASMS Last administered on 04/03/19 08:58; Admin Dose 350 MG; Start 04/02/19 at 02:30 Pantoprazole (Protonix Tab) 40 mg DAILY@06 PO Last administered on 04/03/19 06:59; Admin Dose 40 MG; Start 04/03/19 at 06:00 Lidocaine (Lidoderm) 1 patch DAILY TD Last administered on 04/03/19 09:00; Ad min Dose 1 PATCH; Start 04/02/19 at 02:30 Albuterol (Ventolin Hfa) 2 puff Q6H RESP THERAPY PRN INH WHEEZING; Start 04/02/19 at 19:30 Gabapentin (Neurontin) 100 mg TID PO Last administered on 04/03/19 14:09; Admin Dose 100 MG; Start 04/02/19 at 21:00 Senna/Docusate Sodium (Senokot-S) 2 tab DAILY PO Last administered on 04/03/19 08:58; Admin Dose 2 TAB; Start 04/03/19 at 09:00 Fluticasone/ Vilanterol (Breo Ellipta 100-25 Mcg Inh) 1 inh DAILY INH Last administered on 04/03/19 08:58; Admin Dose 1 INH; Start 04/03/19 at 09:00 Morphine Sulfate (morphine) 3 mg Q3H PRN IV SEVERE PAIN LEVEL 7-10 Last administered on 04/03/19 14:08; Admin Dose 3 MG; Start 04/02/19 at 21:30 Diphenhydramine HCl (Benadryl) 50 mg Q6H PRN PO ITCHING Last administered on 04/03/19 08:58; Admin Dose 50 MG; Start 04/03/19 at 03:30 BANDAR AGRAWAL MD Apr 03, 2019 15:00
[2019-04-03] MEDS: AMITRIPTYLINE 25 MG TAB PO SCH (20:25)
[2019-04-03 20:30] VITALS: BP 131/75; PULSE 73; RESP 18
[2019-04-04] MEDS: morphine 4 MG/ML VIAL IV PRN ×6 (00:08→23:35)
[2019-04-04 02:43] VITALS: BP 135/75; PULSE 86; RESP 18
[2019-04-04] MEDS: PANTOPRAZOLE (EC) 40 MG TAB PO SCH (06:15)
[2019-04-04 07:31] VITALS: BP 131/74; PULSE 84; RESP 19
[2019-04-04] MEDS: ASPIRIN (EC) 81 MG TAB PO SCH (08:25)
[2019-04-04] MEDS: AMLODIPINE 5 MG TAB PO SCH (08:25)
[2019-04-04] MEDS: GABAPENTIN 100 MG CAP PO SCH ×3 (08:25→20:37)
[2019-04-04] MEDS: SENNA/DOCUSATE NA (8.6MG/50MG) TAB PO SCH (08:25)
[2019-04-04] MEDS: LIDOCAINE 5% PATCH TD SCH (08:26)
[2019-04-04] MEDS: BENAZEPRIL 20 MG TAB PO SCH (08:26)
[2019-04-04] MEDS: FLUTICASONE/VILANTEROL 100-25 INH SCH (08:26)
[2019-04-04] MEDS: ENOXAPARIN 40 MG/0.4 ML SYG SC SCH (08:28)
--- NOTE | 2019-04-04 11:54 | PSY ---
Date/Time of Note Date/Time of Note DATE: 04/04/19 TIME: 11:45 Psychiatric Subjective Eval Consent Pt consented to telemedicine: No Subjective Evaluation Patient location: inpatient History of present illness Patient is a 59-year-old female who is currently admitted on the medical surgical unit with complaints of chronic back pain . Patient reports that she has been walking around, but unable to do that because the pain has been increasingly unbearable. She reports, she has been awaiting to have a pain stimulator implanted but she is awaiting to be seen by a psychiatrist for a consultation as part of the clearance process. On a [id number] evaluation, patient , patient denies feeling hopeless, denies anxiety, states she is a [employer] and she believes her pain issues would be resolved. She denies suicidal ideation, denies feeling of worthlessness and hopelessness and contracted for safety. Mini-Mental status exam used and patient scored 30/30.. Patient is alert and oriented and has the capacity to make her decisions. Past psychiatric history Denies history of mental illness Hospitalization: other Medical history Problems Medical Problems: (1) Abdominal pain Status: Acute (2) Abdominal pain Status: Acute (3) Abdominal wall pain Status: Acute (4) Abdominal wall pain in left lower quadrant Status: Acute Allergies: Coded Allergies: butorphanol (Verified Allergy, Severe, RASH, 09/03/18) codeine (Verified Allergy, Severe, RASH, 09/03/18) hydrocodone (Verified Allergy, Severe, RASH, 09/03/18) hydromorphone (Verified Allergy, Severe, RASH, 09/03/18) ketorolac (Verified Allergy, Severe, RASH,BREATHINGPROBL, 09/03/18) nalbuphine (Verified Allergy, Severe, RASH, 09/03/18) oxycodone (Verified Allergy, Severe, RASH,BREATHING, 09/03/18) pentazocine (Verified Allergy, Severe, CHRISTOPHER, 09/03/18) Substance Abuse Substance use: other Substance abuse history: No Prior substance abuse treatmen: No Social History Marital status: other DPA/Conservatorship: No Psychiatric Objective Eval Review of Systems: Review of Systems: Not Applicable Physical Examination: Physical Examination: Not Applicable Appetite: Adequate Energy: Adequate Interest: Adequate Mental Status Examination: Appearance: Groomed Eye Contact: Good Psychomotor Activity: Normal Behavior: Cooperative Speech: Clear AFFECT: Appropriate Mood: Appropriate/Full Though Process: Linear Thought Content: Normal Orientation: x4 Cognition: Alert Insight: Intact Judgement: Intact Attention Span: Intact Laboratory Results Laboratory Tests Test 04/03/19 04:30 04/03/19 04:31 Prothrombin Time 13.2 Sec Prothrombin Time Ratio 1.0 INR International Normalized Ratio 0.99 Phosphorus Level 3.4 mg/dl Magnesium Level 1.8 mg/dl Vitamin B12 Level 686 pg/ml Free Thyroxine 0.70 ng/dl Total Triiodothyronine 0.90 ng/ml White Blood Count 10.8 10^3/ul Red Blood Count 3.50 10^6/ul Hemoglobin 10.3 g/dl Hematocrit 33.4 % Mean Corpuscular Volume 95.4 fl Mean Corpuscular Hemoglobin 29.4 pg Mean Corpuscular Hemoglobin Concent 30.8 g/dl Red Cell Distribution Width 15.1 % Platelet Count 254 10^3/UL Mean Platelet Volume 9.5 fl Immature Granulocytes % 0.300 % Neutrophils % 67.4 % Lymphocytes % 25.9 % Monocytes % 5.8 % Eosinophils % 0.4 % Basophils % 0.2 % Nucleated Red Blood Cells % 0.0 /100WBC Immature Granulocytes # 0.030 10^3/ul Neutrophils # 7.3 10^3/ul Lymphocytes # 2.8 10^3/ul Monocytes # 0.6 10^3/ul Eosinophils # 0.0 10^3/ul Basophils # 0.0 10^3/ul Nucleated Red Blood Cells # 0.0 10^3/ul Sodium Level 140 mmol/L Potassium Level 3.9 mmol/L Chloride Level 107 mmol/L Carbon Dioxide Level 28 mmol/L Anion Gap 5 Blood Urea Nitrogen 17 mg/dl Creatinine 0.69 mg/dl Est Glomerular Filtrat Rate mL/min > 60 mL/min Glucose Level 178 mg/dl Calcium Level 8.3 mg/dl Total Bilirubin 0.2 mg/dl Direct Bilirubin 0.00 mg/dl Indirect Bilirubin 0.2 mg/dl Aspartate Amino Transf (AST/SGOT) 23 IU/L Alanine Aminotransferase (ALT/SGPT) 29 IU/L Alkaline Phosphatase 132 IU/L Total Protein 7.3 g/dl Albumin 3.7 g/dl Globulin 3.60 g/dl Albumin/Globulin Ratio 1.02 Thyroid Stimulating Hormone (TSH) 2.950 MIU/L Assessment and Plan Recommendation/Plan Medication Management No medication required. Multiple antipsychotics: No Psychotherapy Provide supportive therapy Discharge Disposition: Other Legal Status: Voluntary (Patient does not meet criteria for 5150 hold she is mentally stable and able to make her own decisions) TREASURE JESUS NP Apr 04, 2019 11:54
[2019-04-04] MEDS: CARISOPRODOL 350 MG TAB PO PRN (13:05)
--- NOTE | 2019-04-04 15:16 | PN ---
Date/Time of Note Date/Time of Note DATE: 04/04/19 TIME: 15:13 Assessment/Plan VTE Prophylaxis Risk score (from Nsg)>0 risk: 4 SCD applied (from Nsg): Yes Pharmacological prophylaxis: LMWH Lines/Catheters IV Catheter Type (from Nrsg): port-a-cath Assessment/Plan Hospital Course 1. Chronic back pain, stable cont conservative management Neurosurgery consultation appreciated, no indication for intervention at this time Pain control with medications Patient scheduled to have outpatient spinal nerve stimulator implanted 2. Incontinence- No cauda equina syndrome. No NS intervention needed 3. Hypertension 4. DJD 5. Chronic asthma 6. Chronic pancreatitis 7. History of herpes, patient wants new testing 8. Acute stress disorder, appreciate behavioral health assistance Prophylaxis: Lovenox DC planning: Anticipate DC home tomorrow Result Diagram: 04/03/1943004/03/19430 Subjective 24 Hr Interval Summary Musculoskeletal: back pain Exam/Review of Systems Exam Vitals Vital Signs Date Temp Pulse Resp B/P (MAP) Pulse Ox O2 O2 Flow FiO2 Time Delivery Rate 04/04/19 98.2 84 19 131/74 99 07:31 (93) 04/02/19 Room Air 14:29 Intake and Output 04/03/19 04/03/19 04/04/19 1515:00 23:00 07:00 IntakeIntake Total 200 ml 100 ml BalanceBalance 200 ml 100 ml Constitutional: alert, oriented Respiratory: clear to auscultation Cardiovascular: regular rate and rhythm Gastrointestinal: soft; No distended Musculoskeletal: nl extremities to inspection Medications Medication Current Medications IV Flush (NS 3 ml) 3 ml PER PROTOCOL IV ; Start 04/02/19 at 02:30 Ondansetron HCl (Zofran Inj) 4 mg Q4H PRN IV NAUSEA/VOMITING; Start 04/02/19 at 02:30 Docusate Sodium (Colace) 100 mg Q12H PRN PO .CONSTIPATION; Start 04/02/19 at 02:30 Bisacodyl (Dulcolax) 5 mg DAILY PRN PO .CONSTIPATION; Start 04/02/19 at 02:30 Amlodipine Besylate (Norvasc) 5 mg DAILY PO Last administered on 04/04/19at 08:25; Admin Dose 5 MG; Start 04/02/19 at 09:00 Aspirin (Halfprin) 81 mg DAILY PO Last administered on 04/04/19 08:25; Admin Dose 81 MG; Start 04/02/19 at 09:00 Benazepril HCl (Lotensin) 20 mg DAILY PO Last administered on 04/04/19 08:26; Admin Dose 20 MG; Start 04/02/19 at 09:00 Carisoprodol (Soma) 350 mg DAILY PRN PO MUSCLE SPASMS Last administered on 04/04/19 13:05; Admin Dose 350 MG; Start 04/02/19 at 02:30 Pantoprazole (Protonix Tab) 40 mg DAILY@06 PO Last administered on 04/04/19 06:15; Admin Dose 40 MG; Start 04/03/19 at 06:00 Lidocaine (Lidoderm) 1 patch DAILY TD Last administered on 04/04/19 08:26; Admin Dose 1 PATCH; Start 04/02/19 at 02:30 Albuterol (Ventolin Hfa) 2 puff Q6H RESP THERAPY PRN INH WHEEZING; Start 04/02/19 at 19:30 Gabapentin (Neurontin) 100 mg TID PO Last administered on 04/04/19 13:02; Admin Dose 100 MG; Start 04/02/19 at 21:00 Senna/Docusate Sodium (Senokot-S) 2 tab DAILY PO Last administered on 04/04/19 08:25; Admin Dose 2 TAB; Start 04/03/19 at 09:00 Fluticasone/ Vilanterol (Breo Ellipta 100-25 Mcg Inh) 1 inh DAILY INH Last administered on 04/04/19 08:26; Admin Dose 1 INH; Start 04/03/19 at 09:00 Diphenhydramine HCl (Benadryl) 50 mg Q6H PRN PO ITCHING Last administered on 04/03/19 08:58; Admin Dose 50 MG; Start 04/03/19 at 03:30 Morphine Sulfate (morphine) 4 mg Q3H PRN IV SEVERE PAIN LEVEL 7-10 Last administered on 04/04/19 13:05; Admin Dose 4 MG; Start 04/03/19 at 15:30 Amitriptyline HCl (Elavil) 25 mg HS PO ; Start 04/03/19 at 21:00 Enoxaparin Sodium (Lovenox) 40 mg DAILY SC Last administered on 8/12/19at 08:28; Admin Dose 40 MG; Start 04/04/19 at 09:00 ANNMARIE JIMÉNEZ Apr 04, 2019 15:16
[2019-04-04 15:18] VITALS: BP 102/59; PULSE 80; RESP 19
[2019-04-04 19:00] VITALS: BP 135/70; PULSE 87; RESP 18
[2019-04-04] MEDS: AMITRIPTYLINE 25 MG TAB PO SCH (21:00)
[2019-04-05 01:53] VITALS: BP 134/67; PULSE 80; RESP 18
[2019-04-05] MEDS: morphine 4 MG/ML VIAL IV PRN ×4 (02:28→17:44)
[2019-04-05] MEDS: PANTOPRAZOLE (EC) 40 MG TAB PO SCH (05:35)
[2019-04-05] MEDS: CARISOPRODOL 350 MG TAB PO PRN (05:35)
[2019-04-05 07:33] VITALS: BP 108/65; PULSE 85; RESP 18
[2019-04-05] MEDS: FLUTICASONE/VILANTEROL 100-25 INH SCH (08:30)
[2019-04-05] MEDS: ASPIRIN (EC) 81 MG TAB PO SCH (08:32)
[2019-04-05] MEDS: GABAPENTIN 100 MG CAP PO SCH ×2 (08:32→12:50)
[2019-04-05] MEDS: SENNA/DOCUSATE NA (8.6MG/50MG) TAB PO SCH (08:32)
[2019-04-05] MEDS: AMLODIPINE 5 MG TAB PO SCH (08:35)
[2019-04-05] MEDS: BENAZEPRIL 20 MG TAB PO SCH (08:35)
[2019-04-05] MEDS: LIDOCAINE 5% PATCH TD SCH (08:38)
[2019-04-05] MEDS: ENOXAPARIN 40 MG/0.4 ML SYG SC SCH (08:40)
--- NOTE | 2019-04-05 12:20 | PDOCDIS ---
Discharge Instructions CONDITION Gying0Dc Patient Condition: [id number] Good HOME CARE INSTRUCTIONS: [id number] Diet Instructions: [id number] Regular ACTIVITY: [id number] Activity Restrictions: [id number] No Restrictions FOLLOW UP/APPOINTMENTS Follow-up Plan FOLLOW UP WITH YOUR PCP IN 1-2 WEEKS, FOLLOW UP WITH YOUR PAIN SPECIALIST ANNMARIE JIMÉNEZ Apr 05, 2019 12:20
[2019-04-05 14:00] VITALS: BP 120/63; PULSE 75; RESP 18
--- NOTE | 2019-04-05 15:03 | DS ---
Date/Time of Note Date/Time of Note DATE: 04/05/19 TIME: 15:00 Discharge Summary Admission/Discharge Info Admit Date/Time Apr 03, 2019 at 11:19 Discharge Date/Time April 05, 2019 Discharge Diagnosis 1. Chronic back pain, stable cont conservative management Neurosurgery consultation appreciated, no indication for intervention at this time Pain control with medications Patient scheduled to have outpatient spinal nerve stimulator implanted 2. Incontinence- No cauda equina syndrome. No NS intervention needed 3. Hypertension 4. DJD 5. Chronic asthma 6. Chronic pancreatitis 7. History of herpes, patient wants new testing 8. Acute stress disorder, appreciate behavioral health assistance Patient Condition: Good Hospital Course Patient is a 49-year-old female with history of chronic back pain with multiple epidural injections and plans for implantable stimulator. Patient presents with acute worsening of back pain with urinary incontinence. MRI was performed at the facility that showed slight desiccation of the L4-L5 disc with minimal approximately 1 to 2 mm central broad-based bulging of the disc material without focal impression upon the thecal sac centrally. Patient was seen by neurosurgery who did not see any acute issues and no evidence of cauda equina syndrome, recommendation was to continue with outpatient stimulator. The p atient was pending evaluation with a psychiatrist as part of the clearance process for the implant, patient was seen by psychiatry [employer]. Patient was stable for DC to home with plans to follow-up with outpatient pain specialist, on the day of discharge patient's vitals, labs of his exam are stable. Home Meds Active Scripts Cefpodoxime Proxetil* (Cefpodoxime Proxetil*) 200 Mg Tablet, 200 MG PO Q12 for 2 Days, #4 TAB Prov:ELANA WINKLER MD 02/15/19 Reported Medications Budesonide-Formoterol Fumarate* (Symbicort*) 80-4.5 Mcg Hfa.aer.ad, 2 PUFF INHALATION BID, BOTTLE 04/02/19 Albuterol Sulfate* (Ventolin HFA*) 18 Gm Hfa.aer.ad, 2 PUFF INHALATION Q6H, #1 INHALER 04/02/19 [Echinacea] No Conflict Check 12/20/18 [Mupirocin] No Conflict Check 12/20/18 [Morphine Sulfate] No Conflict Check 12/20/18 Aspirin* (Aspirin* EC) 81 Mg Tablet.dr, 81 MG PO DAILY, TAB 1/11/19 Amlodipine Besylate* (Norvasc*) 5 Mg Tablet, 5 MG PO DAILY, TAB 09/03/18 Benazepril Hcl* (Benazepril Hcl*) 20 Mg Tablet, 20 MG PO DAILY, #30 TAB 09/03/18 Carisoprodol* (Carisoprodol*) 350 Mg Tablet, 350 MG PO DAILY PRN for MUSCLE SPASMS, TAB 09/03/18 Calcium Carbonate (Oysco-500) 500 Mg Tablet, 500 MG PO BID, TAB 09/03/18 Follow-up Plan FOLLOW UP WITH YOUR PCP IN 1-2 WEEKS, FOLLOW UP WITH YOUR PAIN SPECIALIST Primary Care Provider Stone Saini Time spent on discharge: > 30 minutes ANNMARIE JIMÉNEZ Apr 05, 2019 15:03
[2019-04-05] MEDS ORDERED: HEPARIN (100 UNITS/ML) 5 ML SYG CATHETER ONE (18:30)
[2019-04-05 19:00] VITALS: BP 140/80; PULSE 85; RESP 18
== END 2019-04-05 20:10 | disposition home health service (06) | DRG 92 ==
LOC: MS1 04-02 01:38 → INTOOBSV 04-02 01:38 → MS1 04-02 02:09 → OBSVTOIN 04-03 11:19
PROVIDERS: ADMIT Family Medicine; ATTEND Internal Medicine
DX: G89.29 Other chronic pain (principal); K86.1 Other chronic pancreatitis; M54.9 Dorsalgia, unspecified; E66.9 Obesity, unspecified; Z68.34 Body mass index [BMI] 34.0-34.9, adult; M19.90 Unspecified osteoarthritis, unspecified site; R32 Unspecified urinary incontinence; J45.909 Unspecified asthma, uncomplicated; I10 Essential (primary) hypertension; R15.9 Full incontinence of feces; F43.0 Acute stress reaction
CPT/HCPCS: 80053; 80061; 82607; 83036; 83735; 84100; 84439; 84443; 84480; 85025; 85610; 86692; 97110; 97116; 97162; 97530; G0378; J1100; J1642; J1644; J1650; J2270; J7030

== ENCOUNTER 2019-06-26 11:49 | Emergency (ER) | payer BC ==
[~2019-06-26] VITALS: Ht 152.4 cm; Wt 72.7 kg
[~2019-06-26 11:49] MED LIST changes: +HYDR25SU23 PR; +MINE133E23 PR; +POLY17PO6 PO
[2019-06-26 11:54] VITALS: Ht 152.4 cm; Wt 72.7 kg
[2019-06-26] MEDS ORDERED: morphine 4 MG/ML VIAL IV STA (12:29)
[2019-06-26] MEDS ORDERED: SOD CHLORIDE 0.9% 1,000 ML IV STA (12:29)
[2019-06-26] MEDS ORDERED: ONDANSETRON 4 MG INJ IV STA (12:29)
[2019-06-26] MEDS ORDERED: IOHEXOL 300MG/ML 150 ML BTL ONE (14:16)
[2019-06-26] MEDS ORDERED: SOD CHLORIDE 0.9% 100 ML ONE ×2 (14:16→15:21)
[2019-06-26] MEDS ORDERED: IOHEXOL 100 ML ONE (15:21)
[2019-06-26] MEDS ORDERED: morphine 2 MG INJ IV STA ×2 (16:15→18:13)
[2019-06-26] MEDS ORDERED: HEPARIN (100 UNITS/ML) 5 ML SYG CATHETER ONE (20:00)
[2019-06-26 20:45] VITALS: BP 132/65; PULSE 75; RESP 18
== END 2019-06-26 20:48 | disposition home or self-care (01) ==
LOC: FTE 11:49
DX: M54.6 Pain in thoracic spine (principal); I10 Essential (primary) hypertension; J45.909 Unspecified asthma, uncomplicated; R10.9 Unspecified abdominal pain; Z79.82 Long term (current) use of aspirin; Z87.891 Personal history of nicotine dependence
CPT/HCPCS: 71045; 71275; 72128; 74177; 80053; 81001; 83690; 84484; 85025; 85378; 85610; 85730; 93005; J1642; J2270; J2405; J7030; Q9967; Z7610; 36415; 81003; 96361; 96374; 96375; 96376